=== PATIENT | male | born 1965 | race Hispanic/Latino ===

== ENCOUNTER 2024-07-19 20:07 | Inpatient (IN) | payer BC ==
[~2024-07-19] VITALS: Ht 175.3 cm; Wt 90.8 kg
[~2024-07-19 20:07] MED LIST: COLC0.6T73 PO; DOCU-116 PO; FAMO20TA8 PO; FERR324T4 PO; FOLI0.8T22 PO; Folic Acid/Vitamin B Comp W-C PO; HYDR20TA24 PO; LEVO125C4 PO; SODI650T PO
[2024-07-19 20:49] LABS: BASOPHILS # (AUTO) 0.07 K/uL (0.00-0.20); BASOPHILS % (AUTO) 0.7 % (0.0-5.0); EOSINOPHILS % (AUTO) 1.9 % (0.0-8.0); HEMATOCRIT 39.3 % (42-54); IMMATURE GRANULOCYTE ABSOLUTE 0.18 K/uL (0-1); LYMPHOCYTES # (AUTO) 2.3 K/uL (1.0-4.8); LYMPHOCYTES % (AUTO) 21.7 % (21.0-51.0); MEAN CORPUSCULAR HEMOGLOBIN 33.3 pg (27.0-33.0); MEAN CORPUSCULAR HGB CONC 33.6 g/dL (32.0-36.0); MEAN CORPUSCULAR VOLUME 99.2 fL (79-99); MONOCYTES # (AUTO) 0.6 K/uL (0.1-1.0); MONOCYTES % (AUTO) 5.4 % (3.0-13.0); NEUTROPHILS # (AUTO) 7.4 K/uL (1.8-7.7); NEUTROPHILS % (AUTO) 68.6 % (40.0-77.0); PLATELET COUNT (AUTO) 251 K/uL (130-400); RED BLOOD CELL COUNT(AUTO) 3.96 MIL/uL (4.50-6.20); RED CELL DISTRIBUTION WIDTH 15.7 % (11.0-15.5); WHITE BLOOD COUNT (AUTO) 10.8 K/uL (4.8-10.8)
[2024-07-19 20:57] LABS: CREATININE 4.5 mg/dL (0.5-1.3); POTASSIUM 3.4 mmol/L (3.5-5.1)
--- NOTE | 2024-07-19 22:19 | ERN ---
General Chief Complaint: Abdominal Pain Stated Complaint: C/O ABD PAIN WITH NAUSEA ONSET THIS EVENING Time Seen by MD: 20:10 Time Seen by Midlevel: 20:10 Source: patient History of Present Illness Initial Comments 59-year-old male who presents to the ED due to abdominal pain onset this evening. He states pain started after dinner tonight. Reports nausea but denies vomiting, fever, diarrhea or further associated symptoms. Patient reports previous diagnosis of gallstones one year ago. PMHx ESRD for which patient received dialysis 3 times a week. Dialysis received today. Allergies: Coded Allergies: No Known Drug Allergies (Unverified Allergy, Unknown, 09/13/23) Home Meds Active Scripts Famotidine (Famotidine) 20 Mg Tablet, 20 MG PO DAILY for 30 Days, #30 TAB Prov:ESTELITA AMAYA NP 09/27/23 Docusate Sodium (Colace) 100 Mg Capsule, 100 MG PO DAILY for 30 Days, #30 CAP Prov:ESTELITA AMAYA NP 09/27/23 [Folic Acid/Vitamin B Comp W-C] 1 CAP TAB No Conflict Check, 1 CAP PO DAILY for 30 Days, #30 TAB 0 Refills Prov:ESTELITA AMAYA NP 09/27/23 Ferrous Sulfate (Ferrous Sulfate) 324 Mg (65 Mg Iron) Tablet.dr, 325 MG PO BID for 30 Days, #30 TAB Prov:ESTELITA AMAYA NP 09/27/23 Sodium Bicarbonate (Sodium Bicarbonate) 650 Mg Tablet, 650 MG PO BID for 30 Days, #60 TAB Prov:ESTELITA AMAYA NP 09/27/23 Hydrocortisone (Hydrocortisone) 20 Mg Tablet, 20 MG PO BID for 30 Days, #60 TAB Prov:ESTELITA AMAYA NP 09/27/23 Reported Medications Colchicine (Colchicine) 0.6 Mg Tablet, 0.6 MG PO DAILY for GOUT, TAB 10/24/23 Famotidine (Famotidine) 20 Mg Tablet, 20 MG PO DAILY, TAB 10/24/23 Folic Acid/Vitamin B Comp W-C (Pam-Parmjit Tablet) 0.8 Mg Tablet, 0.8 MG PO DAILY, TAB 10/24/23 Levothyroxine Sodium (Levothyroxine) 125 Mcg Capsule, 125 MCG PO DAILY, CAP 09/15/23 Past Medical History Past Medical History: Renal Failure Medical History Other: BRAIN TUMOR Past Surgical History: Other Surgical History Other: BRAIN TUMOR ROS Dictation Constitutional: Negative for fever,chills, and weight loss Eyes: Negative for injury, pain,redness, and discharge ENT: Negative for injury,pain or swelling Cardiovascular: Negative for chest pain, palpitations, and edema Respiratory: Negative for shortness of breath, cough, and wheezing, Abdomen/GI: Positive for abdominal pain, nausea Negative for vomiting, diarrhea, and constipation Back: Negative for injury and pain : Negative for injury, bleeding and discharge MS/Extremity: Negative for injury and deformity Skin: Negative for rash, and discoloration Neuro: Negative for headache, weakness, numbness, tingling, and seizure Psych: Negative for suicide ideation, homicidal ideation, and hallucinations Physical Exam Physical Exam Dictation General: awake, alert, no acute distress Head/Face: Normocephalic, atraumatic Eyes: normal conjunctiva ENT: oral mucosa moist Neck: Normal range of motion, supple Cardiovascular: RRR, normal S1/S2 Respiratory: no respiratory distress Abdomen: Soft, mild tenderness upon palpation, non-distended, Skin: Warm, dry, normal turgor, no rash MS/Extremity: Pulses equal, no cyanosis, neurovascular intact, FROM Neuro: COAx4, GCS 15, no neurological deficits, normal gait, Psych: Normal behavior, mood, and affect normal Results Laboratory and Microbiology Lab and Micro Result Laboratory Tests Test 07/19/24 20:41 White Blood Count 10.8 K/uL (4.8-10.8) Red Blood Count 3.96 MIL/uL (4.50-6.20) L Hemoglobin 13.2 g/dL (14.0-18.0) L Hematocrit 39.3 % (42-54) L Mean Corpuscular Volume 99.2 fL (79-99) H Mean Corpuscular Hemoglobin 33.3 pg (27.0-33.0) H Mean Corpuscular Hemoglobin Concent 33.6 g/dL (32.0-36.0) Red Cell Distribution Width 15.7 % (11.0-15.5) H Platelet Count 251 K/uL (130-400) Mean Platelet Volume 10.4 fL (7.5-10.5) Immature Granulocyte % (Auto) 1.7 % (0-1) H Neutrophils (%) (Auto) 68.6 % (40.0-77.0) Lymphocytes (%) (Auto) 21.7 % (21.0-51.0) Monocytes (%) (Auto) 5.4 % (3.0-13.0) Eosinophils (%) (Auto) 1.9 % (0.0-8.0) Basophils (%) (Auto) 0.7 % (0.0-5.0) Neutrophils # (Auto) 7.4 K/uL (1.8-7.7) Lymphocytes # (Auto) 2.3 K/uL (1.0-4.8) Monocytes # (Auto) 0.6 K/uL (0.1-1.0) Eosinophils # (Auto) 0.20 K/uL (0.00-0.70) Basophils # (Auto) 0.07 K/uL (0.00-0.20) Absolute Immature Granulocyte (auto 0.18 K/uL (0-1) Nucleated Red Blood Cells 0.0 % (0.0-0.19) Sodium Level 144 mmol/L (136-145) Potassium Level 3.4 mmol/L (3.5-5.1) L Chloride Level 97 mmol/L (101-111) L Carbon Dioxide Level 39 mmol/L (21-32) H Blood Urea Nitrogen 25 mg/dL (7-18) H Creatinine 4.5 mg/dL (0.5-1.3) H Glomerular Filtration Rate Calc 14 mL/min (>90) Random Glucose 138 mg/dL (70-105) H Total Calcium 9.5 mg/dL (8.5-10.1) Total Bilirubin 1.1 mg/dL (0.2-1.0) H Direct Bilirubin 0.7 mg/dL (0.0-0.3) H Aspartate Amino Transf (AST/SGOT) 576 U/L (10-37) H Alanine Aminotransferase (ALT/SGPT) 553 U/L (12-78) H Alkaline Phosphatase 401 U/L (50-136) H Total Protein 8.9 g/dL (6.0-8.3) H Albumin 3.8 g/dL (3.5-5.0) Lipase 65 U/L (16-77) Labs Reviewed?: Yes EKG/XRAY/US/CT/MRI CT Scan Comment REASON: Pain ORDERING PHYSICIAN: JOANA ROSS PROCEDURE: ABD PEL WO - CT ABDOMEN/PELVIS W/O CONTRAST CT ABDOMEN/PELVIS W/O CONTRAST HISTORY: Pain COMPARISON: 10/24/2023 TECHNIQUE: Multiple sequential axial images of the abdomen and pelvis were obtained from the dome of the diaphragm through symphysis pubis. Patient was not given contrast through intravenous route. Oral contrast was not given. FINDINGS: No pleural effusion is seen bilaterally. Prominent interstitial markings are seen. There is no evidence of parenchymal disease or pulmonary nodule of the visualized lower lungs. Degenerative changes of the thoracolumbar spine are present. The heart is not enlarged. Gallstone is seen in the distended gallbladder. Liver measures 17 cm. There is left renal atrophy. There is left ureteral stent. The liver, spleen, adrenal glands and pancreas are unremarkable. There is a 18 x 11 mm right renal cyst. There is no evidence of hydronephrosis bilaterally. No evidence of renal stone is seen. There is diverticulosis. Fecal material is seen in the colon. There are normal size retroperitoneal and mesenteric lymph nodes. No ascites is seen. Atherosclerotic changes are present. Pelvic sidewalls are symmetric bilaterally. Bladder is poorly distended. IMPRESSION: 1. Gallstone in the distended gallbladder. Left ureteral stent with air collection in the left renal pelvis. There is left renal atrophy. There is diverticulosis. CT was performed with one or more following dose reduction techniques: automated exposure control, adjustment of the mA and kv according to patient's size, or use of a iterative reconstruction technique. MDM MDM: Differential diagnosis: Cholecystitis, cholelithiasis, abdominal pain, biliary colic Rationale: 59-year-old male who presents to the ED due to abdominal pain onset this evening. He states pain started after dinner tonight. Reports nausea but denies vomiting, fever, diarrhea or further associated symptoms. Patient reports previous diagnosis of gallstones one year ago. PMHx ESRD for which patient received dialysis 3 times a week. Dialysis received today. Labs obtained are consistent with end-stage renal disease. CT abdomen and pelvis indicates cholelithiasis with a distended gallbladder. LFTs elevated, clinical correlation of duct obstruction. On re-examination patient stated pain had resolved. Per lab results and CT findings patient requires a HIDA scan. Case discussed with MIMI Cao who accepted admission. Findings, diagnosis, admission was discussed with patient and who verbalized understanding and agreed with admission. Previous outside records reviewed: Old ER visits. Risk of complication and/or morbidity or mortality of patient management: None Medications-Per medication reconciliation Need for hospitalization: Patient does meet criteria for hospitalization. Need for emergency major/minor surgery: No There are no social concerns with this patient. Prescription drug management Prescriptions will include symptomatic care Patient's prior external medical records from other ER visits were reviewed by me as indicated. Prior testing and results from previous visits were reviewed. Prior tests were taken into account with medical decision making and resource utilization, independent historian/historians were used to obtain complete medical history. I independently interpreted the test that were performed, results were reviewed by me and considered findings on radiology if ordered. Medical management and examination interpretation discussions were had by me with other qualified healthcare professionals as indicated for the patient's care. ED Course Orders Procedure Category Date Status Time Cbc With Differential LAB 07/19/24 Complete 20:10 Lipase LAB 07/19/24 Complete 20:10 Urinalysis Profile LAB 07/19/24 In Process 20:10 Basic Metabolic Panel LAB 07/19/24 Complete 20:10 Ct Abdomen/Pelvis W/O CT 07/19/24 Resulted Contrast 21:46 Hepatic Function Panel LAB 07/20/24 Complete 00:10 Vital Signs Date Time Temp Pulse Resp B/P (MAP) Pulse Ox O2 Delivery O2 Flow Rate FiO2 07/19/24 21:45 98.4 85 18 97/65 99 Room Air* 0 21 07/19/24 20:11 99.1 100 20 100/68 100 Room Air Critical Care Note Critical Time: 30 minutes Comments Critical Care Procedure Note Authorized and Performed by: Total critical care time: Approximately 36 minutes Due to a high probability of clinically significant, life threatening deterioration, the patient required my highest level of preparedness to intervene emergently and I personally spent this critical care time directly and personally managing the patient. This critical care time included obtaining a history; examining the patient; pulse oximetry; ordering and review of studies; arranging urgent treatment with development of a management plan; evaluation of patient's response to treatment; frequent reassessment; and, discussions with other providers. This critical care time was performed to assess and manage the high probability of imminent, life-threatening deterioration that could result in multi-organ failure. It was exclusive of separately billable procedures and treating other patients and teaching time. Please see MDM section and the rest of the note for further information on patient assessment and treatment. DX & DISP Disposition: Inpatient Departure Impression: Primary Impression: Cholelithiasis Additional Impressions: Biliary colic, Elevated LFTs Condition: Stable Referrals: YARA ABREU Jr., MD (PCP) I participated in the following activities of this patient's care: For this patient encounter, I reviewed the PA or PRESALES ENGINEER documentation, treatment plan, and medical decision making. I did not have [id number] time with this patient. I will sign as the reviewing DrJc And agree with the treatment plan and disposition. JOANA ROSS Jul 19, 2024 22:19
--- NOTE | 2024-07-19 22:40 | HMCIMG ---
CT ABDOMEN/PELVIS W/O CONTRAST HISTORY: Pain COMPARISON: 10/24/2023 TECHNIQUE: Multiple sequential axial images of the abdomen and pelvis were obtained from the dome of the diaphragm through symphysis pubis. Patient was not given contrast through intravenous route. Oral contrast was not given. FINDINGS: No pleural effusion is seen bilaterally. Prominent interstitial markings are seen. There is no evidence of parenchymal disease or pulmonary nodule of the visualized lower lungs. Degenerative changes of the thoracolumbar spine are present. The heart is not enlarged. Gallstone is seen in the distended gallbladder. Liver measures 17 cm. There is left renal atrophy. There is left ureteral stent. The liver, spleen, adrenal glands and pancreas are unremarkable. There is a 18 x 11 mm right renal cyst. There is no evidence of hydronephrosis bilaterally. No evidence of renal stone is seen. There is diverticulosis. Fecal material is seen in the colon. There are normal size retroperitoneal and mesenteric lymph nodes. No ascites is seen. Atherosclerotic changes are present. Pelvic sidewalls are symmetric bilaterally. Bladder is poorly distended. IMPRESSION: 1. Gallstone in the distended gallbladder. Left ureteral stent with air collection in the left renal pelvis. There is left renal atrophy. There is diverticulosis. CT was performed with one or more following dose reduction techniques: automated exposure control, adjustment of the mA and kv according to patient's size, or use of a iterative reconstruction technique.
--- NOTE | 2024-07-19 23:48 | NUR ---
SBAR GIVEN TO JOSE UMANZOR
[2024-07-20 00:39] LABS: ALBUMIN 3.8 g/dL (3.5-5.0); BILIRUBIN,DIRECT 0.7 mg/dL (0.0-0.3); BILIRUBIN,TOTAL 1.1 mg/dL (0.2-1.0); TOTAL PROTEIN, SERUM 8.9 g/dL (6.0-8.3)
[2024-07-20] MEDS ORDERED: CALC667C10 PO (01:03)
[2024-07-20] MEDS ORDERED: EZET10TA48 PO (01:03)
[2024-07-20] MEDS ORDERED: HYDR-4419 PO (01:03)
[2024-07-20] MEDS ORDERED: FOLI0.8T43 PO (01:03)
--- NOTE | 2024-07-20 02:16 | HP ---
[facility] HISTORY AND PHYSICAL Date of Service: Jul 20, 2024 Time of Service: 02:15 PCP: Jonatan Barahona HISTORY OF PRESENT ILLNESS: This is a 59-year-old male with past medical history of diabetes, hypothyroidism, osteoarthritis, left retro-orbital mass with removal and end- stage renal disease on hemodialysis who presents to the ED for complaints of abdominal pain located around mid abdomen described pain as discomfort.Patient states he had rice and chicken around 5:00pm and at 5:30 pm he started having abdominal pain associated with nausea but no vomiting.Patient states his last bowel movement was last night and it was normal. Seen and examined patient in the ED awake,alert and coherent,appears comfortable. Patient denies fever, chills, vomiting, diarrhea, chest pain, cough, palpitation and shortness of breath. Latest vital signs temperature 98.6, heart rate 86, blood pressure 110/65, saturation 98% on room air. Labs: WBC 10.8, hemoglobin 13.2, hematocrit 39.3, platelet count 251. Potassium 3.4, chloride 97, CO2 39, BUN 25, creatinine 4.5, GFR 14 glucose 138, total bili 1.1, direct bili 0.7, AST 576, ALT 553, alkaline phosphatase 401 total protein 8.[address] abdomen and pelvis without contrast result revealed gallstone in the distended gallbladder. Left ureteral stent with air collection in the left renal pelvis. There is left renal atrophy. There is diverticulosis. We will admit patient for further medical management. REVIEW OF SYSTEMS CONSTITUTIONAL: Denies fevers, chills, or night sweats. No unintentional weight loss reported. NEUROLOGICAL: Denies headache, amaurosis fugax, motor weakness, sensory deficit, vertigo/spinning sensation, gait abnormalities, or tremors. ENT: No hearing loss, otalgia, otorrhea, rhinitis, rhinorrhea, hoarseness, or sore throat. CARDIOVASCULAR: Denies any exertional angina, dyspnea on exertion, orthopnea, paroxysmal nocturnal dyspnea, palpitations, life-threatening arrhythmias, claudication. PULMONARY: Denies any shortness of breath, cough, phlegm/sputum, hemoptysis, pleuritic chest pain. SLEEP: Denies morning headaches, daytime somnolence or napping. Denies difficulty falling asleep, staying asleep, waking from sleep. Denies knowledge of snoring. GASTROINTESTINAL: Abdominal pain and nausea Denies any type of dysphagia to either liquids or solids. Denies vomiting, pyrosis, early satiety, diarrhea, constipation, or changes in stool consistency or caliber. Denies coffee-ground emesis, hematemesis, hematochezia, or melanotic stools. GENITOURINARY: Denies frequency, urgency, nocturia, hematuria or incontinence (Storage/Irritative symptoms.) Low urinary stream, straining to void, urinary intermittency or hesitancy, splitting of the voiding stream, terminal dribbling. ENDOCRINOLOGIC: Denies polyuria, polydipsia, polyphagia or heat/cold intolerances. HEMATOLOGIC: Denies thrombophilia/previous clots, or coagulopathy/bleeding disorders. ONCOLOGIC: Denies personal history of malignancy. DERMATOLOGIC: Denies rashes or pruritus. PSYCHIATRIC: Denies any suicidal or homicidal ideation. Denies hallucinations. PAST MEDICAL HISTORY: Diabetes type 2 End-stage renal disease on hemodialysis Wednesday Hypothyroidism Osteoarthritis Left retro-orbital mass PAST SURGICAL HISTORY: Left arm fistula Right chest permacath Status post left retro-orbital mass removal in August 2023 in [facility] PAST SOCIAL HISTORY: Patient denies tobacco alcohol and recreational drug use FAMILY HISTORY: Noncontributory Coded Allergies: No Known Drug Allergies (Unverified Allergy, Unknown, 09/13/23) PHYSICAL EXAM GENERAL APPEARANCE: The patient is awake, alert, and oriented, in no acute cardiopulmonary distress. NEUROLOGICAL: Cranial nerves II-XII grossly intact. Motor is 5/5 in bilateral upper and lower extremities proximal to distal. No sensory deficits. HEENT: Face is symmetric. Pupils are equal and reactive. Extraocular movements are intact. NECK: Supple. No JVD. No thyromegaly. No submental, submandibular, pre-/po stauricular, occipital or supraclavicular lymphadenopathy. CHEST: Normal chest expansion. No Telemetry. LUNGS: Absence of any rales, rhonchi or any wheezing. CARDIOVASCULAR: Regular. S1 and S2 normal. No appreciable rubs, murmurs or gallops. ABDOMEN: Soft, nontender, and nondistended. There is no rebound, voluntary guarding, or rigidity. : Deferred. No Shea. EXTREMITIES: Non-edematous and not cyanotic. No clubbing. Good capillary refill. SKIN: No skin breakdown. Vital Sign (Last 24 Hours) 07/20/24 01:11 Temp 98.6 Pulse 86 Resp 18 B/P (MAP) 110/65 Pulse Ox 98 O2 Delivery Room Air* O2 Flow Rate 0 FiO2 21 LABS: Laboratory: Test 07/19/24 20:41 Range/Units White Blood Count 10.8 4.8-10.8 K/uL Red Blood Count 3.96 L 4.50-6.20 MIL/uL Hemoglobin 13.2 L 14.0-18.0 g/dL Hematocrit 39.3 L 42-54 % Mean Corpuscular Volume 99.2 H 79-99 fL Mean Corpuscular Hemoglobin 33.3 H 27.0-33.0 pg Mean Corpuscular Hemoglobin Concent 33.6 32.0-36.0 g/dL Red Cell Distribution Width 15.7 H 11.0-15.5 % Platelet Count 251 130-400 K/uL Mean Platelet Volume 10.4 7.5-10.5 fL Immature Granulocyte % (Auto) 1.7 H 0-1 % Neutrophils (%) (Auto) 68.6 40.0-77.0 % Lymphocytes (%) (Auto) 21.7 21.0-51.0 % Monocytes (%) (Auto) 5.4 3.0-13.0 % Eosinophils (%) (Auto) 1.9 0.0-8.0 % Basophils (%) (Auto) 0.7 0.0-5.0 % Neutrophils # (Auto) 7.4 1.8-7.7 K/uL Lymphocytes # (Auto) 2.3 1.0-4.8 K/uL Monocytes # (Auto) 0.6 0.1-1.0 K/uL Eosinophils # (Auto) 0.20 0.00-0.70 K/uL Basophils # (Auto) 0.07 0.00-0.20 K/uL Absolute Immature Granulocyte (auto 0.18 0-1 K/uL Nucleated Red Blood Cells 0.0 0.0-0.19 % Sodium Level 144 136-145 mmol/L Potassium Level 3.4 L 3.5-5.1 mmol/L Chloride Level 97 L 101-111 mmol/L Carbon Dioxide Level 39 H 21-32 mmol/L Blood Urea Nitrogen 25 H 7-18 mg/dL Creatinine 4.5 H 0.5-1.3 mg/dL Glomerular Filtration Rate Calc 14 >90 mL/min Random Glucose 138 H 70-105 mg/dL Total Calcium 9.5 8.5-10.1 mg/dL Total Bilirubin 1.1 H 0.2-1.0 mg/dL Direct Bilirubin 0.7 H 0.0-0.3 mg/dL Aspartate Amino Transf (AST/SGOT) 576 H 10-37 U/L Alanine Aminotransferase (ALT/SGPT) 553 H 12-78 U/L Alkaline Phosphatase 401 H 50-136 U/L Total Protein 8.9 H 6.0-8.3 g/dL Albumin 3.8 3.5-5.0 g/dL Lipase 65 16-77 U/L DIAGNOSTICS / RADIOLOGY: [ ] ASSESSMENT: Suspected acute cholecystitis with cholelithiasis POA Elevated liver enzymes POA Anemia on chronic kidney disease POA End-stage renal disease on hemodialysis POA Hyperglycemia POA Obesity POA Hypothyroidism POA PLAN: We will admit patient in medical surgical floor We will keep patient nothing by mouth We will start on Famotidine 20 mg IV daily for GI prophylaxis We will add prn medication for fever,pain ,nausea and vomiting We will reconcile home meds once medlist available We will seek general surgery consultation We will seek Nephrology consultation We will obtain abdominal ultrasound We will request labs in am Further orders to follow depending on above results Case discussed with attending physician and came up with above treatment and plan of care. ADVANCED CARE PLANNING 1. Which of the following were discussed? Hospice Care - No Therapeutic options - Yes Advance Directives - No Other discussions - 2. Discussed with who? Patient 3. Voluntary nature of this service was explained to the patient? Yes 4. Amount of time spent - _18 5. Reviewed by Physician? (if this service was performed by NPP) Yes Patient seen and examined by me. Agree with note by SECTION LABORER SEE ADDITIONAL ORDERS PER CHART DISCUSSED WITH NURSING STAFF DULCE MARIA QUIROGAP Jul 20, 2024 02:16
[2024-07-20] MEDS ORDERED: hydrALAZine 20MG/ML VIAL IV PRN (02:30)
[2024-07-20] MEDS ORDERED: ondanSETRON 4MG INJ IV PRN (02:30)
[2024-07-20] MEDS: ALBUMIN HUMAN 25% 100 ML IV ONE (05:02)
[2024-07-20] MEDS: ALBUMIN HUMAN 25% 100 ML IV SCH (05:03)
[2024-07-20 07:02] LABS: BASOPHILS # (AUTO) 0.05 K/uL (0.00-0.20); BASOPHILS % (AUTO) 0.7 % (0.0-5.0); EOSINOPHILS # (AUTO) 0.21 K/uL (0.00-0.70); HEMATOCRIT 33.9 % (42-54); IMMATURE GRANULOCYTE ABSOLUTE 0.14 K/uL (0-1); LYMPHOCYTES % (AUTO) 28.2 % (21.0-51.0); MEAN CORPUSCULAR HEMOGLOBIN 32.7 pg (27.0-33.0); MEAN CORPUSCULAR HGB CONC 33.6 g/dL (32.0-36.0); MEAN CORPUSCULAR VOLUME 97.1 fL (79-99); MONOCYTES # (AUTO) 0.5 K/uL (0.1-1.0); MONOCYTES % (AUTO) 7.5 % (3.0-13.0); NEUTROPHILS # (AUTO) 4.1 K/uL (1.8-7.7); NEUTROPHILS % (AUTO) 58.6 % (40.0-77.0); PLATELET COUNT (AUTO) 234 K/uL (130-400); RED BLOOD CELL COUNT(AUTO) 3.49 MIL/uL (4.50-6.20); RED CELL DISTRIBUTION WIDTH 15.7 % (11.0-15.5)
[2024-07-20 07:29] LABS: ALBUMIN 3.5 g/dL (3.5-5.0); BILIRUBIN,DIRECT 1.3 mg/dL (0.0-0.3); BILIRUBIN,TOTAL 1.8 mg/dL (0.2-1.0); CREATININE 5.3 mg/dL (0.5-1.3); TOTAL PROTEIN, SERUM 7.9 g/dL (6.0-8.3)
--- NOTE | 2024-07-20 07:45 | NUR ---
ASSESSMENT: PT FOUND ALERT AND AWAKE. NO ACUTE DISTRESS AT THIS TIME. GI/: PT WAS HERE FOR ABD PAIN RUQ. DX CHOLECYTITIS. TENDERNESS TO PALPATION ONLY AT THIS TIME. + BS X 4 QUADS. NO BM OF YET. PT HAS HD Q M-W-F. PT DENIES N/V AT THIS TIME. PT STILL VOIDS URINE. NEURO: PT A/O X 4. GCS 15. PT FOLLOWS ALL COMMANDS BOTH SIMPLE AND COMPLEX. NEUROLOGICALLY INTACT MUSCULOSKELETAL/INTEGUMENTARY: PT HAS FULL ROM AND NO SKIN BREAKDOWN NOTED NOR VERBALIZED BY PT. CARDIO/PULMONARY: PT DENIES CP. NO EDEMA NOTED TO LE'S BILATERALLY. PT HAS AN IRREGULAR BEAT/AFIB. NO CYANOSIS NOTED TO NAIL BEDS ON FINGERS. PT ALSO DENIES ANY SOB AT THIS TIME. SATS>95%ON ROOM AIR OXYGEN. CAP REFILL LESS THAN 3 SEC.
--- NOTE | 2024-07-20 07:48 | NUR ---
DR QUINTERO WAS IN TO SEE THE PT.
--- NOTE | 2024-07-20 07:50 | NUR ---
DR QUINTERO IN TO SEE PT.
[2024-07-20 08:42] LABS: ERYTHROCYTE SEDIMENTATION RATE 70 MM/HR (0-20)
--- NOTE | 2024-07-20 09:28 | NUR ---
SURGICAL CONSULT: TOMÁS AVINA WAS IN TO SEE THE PT. WILL PLACED ORDERS.
--- NOTE | 2024-07-20 10:35 | HMCIMG ---
US ABDOMINAL COMPLETE REASON: elevated livewr enzymes COMPARISON: None FINDINGS: There is moderate fatty infiltration of the liver. There are no focal mass lesions. The liver is borderline at 16 cm.There are stones present within the gallbladder. There is no wall thickening or pericholecystic edema. Right kidney is 10.8 x 5.4 x 5.5 cm, left 7 x 3.7 x 3.2 cm. There is a 2.2 cm right renal cyst. There is a stent visible in the left kidney, there is also a 6 mm nonobstructing stone. Spleen and common duct appear normal. Aorta and inferior vena cava appear normal. The pancreas appears normal as well. IMPRESSION: 1. Moderate fatty infiltration of the liver which is borderline in size. 2. Stent seen in the left kidney, there is no hydronephrosis, there is a 6 mm stone. 3. Otherwise unremarkable exam.
--- NOTE | 2024-07-20 10:51 | PN ---
Consulting physician: Dr. Quevedo Consulting service: General surgery Reason for consultation: Cholecystitis History of present illness: This 59-year-old male with a medical history listed below who has been consulted to surgery after presenting to the hospital with the abdominal pain that began yesterday evening. Patient reports similar episode years prior where he was treated medically and sent home with antibiotics. Upon admission imaging performed and concerns for cholecystitis noted. Patient however with elevated LFTs and a bilirubin of 1.8. White count and hemoglobin stable. Patient currently NPO. Patient reports abdominal pain has improved but currently NPO. Patient on IV fluids and IV antibiotics Medical history: Diabetes type 2 End-stage renal disease on hemodialysis Wednesday Hypothyroidism Osteoarthritis Left retro-orbital mass PAST SURGICAL HISTORY: Left arm fistula Right chest permacath Status post left retro-orbital mass removal in August 2023 in [facility] PAST SOCIAL HISTORY: Patient denies tobacco alcohol and recreational drug use FAMILY HISTORY: Noncontributory Coded Allergies: No Known Drug Allergies (Unverified Allergy, Unknown, 09/13/23) Review of systems: General: No Fever, No Chills, No Night Sweats, No Fatigue, No Malaise, No Appetite, No Other HEENT: No Head Aches, No Visual Changes, No Eye Pain, No Ear Pain, No Dysphasia, No Sinus Congestion, No Post Nasal Drip, No Sore Throat, No Other Pulmonary: No Dyspnea, No Cough, No Pleuritic Chest Pain, No Other Cardiovascular: No: Chest Pain, Palpitations, Orthopnea, Paroxysmal No Dyspnea, Edema, Lt Headedness, Other Gastrointestinal: No: Nausea, Vomiting, Diarrhea, Constipation, Melena, Hematochezia, Other Genitourinary: No Dysuria, No Frequency, No Incontinence, No Hematuria, No Retention, No Other Musculoskeletal: No: other, neck pain, shoulder pain, arm pain, back pain, hand pain, leg pain, foot pain Skin: No Urticaria, No Rash, No Other Neurological: No: Weakness, Numbness, Incoordination, Change in speech, Confusion, Seizures, Other Physical exam: General: Awake alert and oriented Heart: Regular rate and rhythm} Lungs: Clear to auscultation no distress Abdomen: [Soft, nontender, nondistended Assessment: This is a 59-year-old male with concerns of cholecystitis with elevated bilirubin Plan: With concerns of elevated bilirubin MRCP to be ordered Patient to be kept NPO Pending results will determine if surgical intervention will be necessary Nursing report any further acute events Dr. Mo to be updated in patient's status and surgical team to follow patient closely Vitals/Labs Vital Signs Date Time Temp Pulse Resp B/P (MAP) Pulse Ox O2 Delivery O2 Flow Rate FiO2 07/20/24 09:36 97.9 78 16 97/61 98 Room Air* 0 21 Laboratory Tests 07/19/24 20:41 07/20/24 06:49 Medications Current Medications Ondansetron HCl 4 mg Q6H PRN IV; Start 07/20/24 at 02:30; Stop 08/19/24 at 02:29 Hydralazine HCl 10 mg Q6H PRN IV; Start 07/20/24 at 02:30; Stop 08/19/24 at 02:29 Famotidine 10 mg DAILY IV; Start 07/20/24 at 09:00; Stop 08/19/24 at 08:59 Albumin Human 100 ml @ 0 mls/hr AD IV; Start 07/20/24 at 05:00; Stop 08/19/24 at 04:59 Albumin Human 100 ml @ As Directed STK-MED ONCE IV Last administered on 07/20/24at 05:02; Start 07/20/24 at 04:52; Stop 07/20/24 at 04:58; Status DC TOMÁS STARR Jr. Jul 20, 2024 10:51
[2024-07-20] MEDS: FAMOTIDINE 20MG VIAL IV SCH (11:00)
[2024-07-20] MEDS: miDODRine HCL 5 MG TABLET PO ONE (11:00)
--- NOTE | 2024-07-20 11:04 | PN ---
[facility] PROGRESS NOTE Date of Service: Jul 20, 2024 Time of Service: 10:[address] Quintero SUBJECTIVE: [This is a 59-year-old male with past medical history of diabetes, hypothyroidism, osteoarthritis, left retro-orbital mass with removal and end- stage renal disease on hemodialysis who presents to the ED for complaints of abdominal pain located around mid abdomen described pain as discomfort.Patient states he had rice and chicken around 5:00pm and at 5:30 pm he started having abdominal pain associated with nausea but no vomiting.Patient states his last bowel movement was last night and it was normal. Seen and examined patient in the ED awake,alert and coherent,appears comfortable. Patient denies fever, chills, vomiting, diarrhea, chest pain, cough, palpitation and shortness of breath. Latest vital signs temperature 98.6, heart rate 86, blood pressure 110/65, saturation 98% on room air. Labs: WBC 10.8, hemoglobin 13.2, hematocrit 39.3, platelet count 251. Potassium 3.4, chloride 97, CO2 39, BUN 25, creatinine 4.5, GFR 14 glucose 138, total bili 1.1, direct bili 0.7, AST 576, ALT 553, alkaline phosphatase 401 total protein 8.[address] abdomen and pelvis without contrast result revealed gallstone in the distended gallbladder. Left ureteral stent with air collection in the left renal pelvis. There is left renal atrophy. There is diverticulosis. We will admit patient for further medical management. 07/20/24 patient was seen by nurse practitioner and physician during rounding in the emergency department in room ED 11 lying in bed. Patient was evaluated by the surgeon and per their request MRCP to be performed 1st once the procedure will be performed they might continue with cholecystectomy possibly tomorrow 07/21/2024 further plan/recommendation awaiting. Patient to receive dialysis tomorrow 07/21/2024. We will continue monitoring patient in the meantime a.m. labs. ] REVIEW OF SYSTEMS CONSTITUTIONAL: Denies fevers, chills, or night sweats. No unintentional weight loss reported. NEUROLOGICAL: Denies headache, amaurosis fugax, motor weakness, sensory defici t, vertigo/spinning sensation, gait abnormalities, or tremors. ENT: No hearing loss, otalgia, otorrhea, rhinitis, rhinorrhea, hoarseness, or sore throat. CARDIOVASCULAR: Denies any exertional angina, dyspnea on exertion, orthopnea, paroxysmal nocturnal dyspnea, palpitations, life-threatening arrhythmias, claudication. PULMONARY: Denies any shortness of breath, cough, phlegm/sputum, hemoptysis, pleuritic chest pain. SLEEP: Denies morning headaches, daytime somnolence or napping. Denies difficulty falling asleep, staying asleep, waking from sleep. Denies knowledge of snoring. GASTROINTESTINAL: Abdominal pain and nausea Denies any type of dysphagia to either liquids or solids. Denies vomiting, pyrosis, early satiety, diarrhea, constipation, or changes in stool consistency or caliber. Denies coffee-ground emesis, hematemesis, hematochezia, or melanotic stools. GENITOURINARY: Denies frequency, urgency, nocturia, hematuria or incontinence (Storage/Irritative symptoms.) Low urinary stream, straining to void, urinary intermittency or hesitancy, splitting of the voiding stream, terminal dribbling. ENDOCRINOLOGIC: Denies polyuria, polydipsia, polyphagia or heat/cold intolerances. HEMATOLOGIC: Denies thrombophilia/previous clots, or coagulopathy/bleeding disorders. ONCOLOGIC: Denies personal history of malignancy. DERMATOLOGIC: Denies rashes or pruritus. PSYCHIATRIC: Denies any suicidal or homicidal ideation. Denies hallucinations. PHYSICAL EXAM GENERAL APPEARANCE: The patient is awake, alert, and oriented, in no acute cardiopulmonary distress. NEUROLOGICAL: Cranial nerves II-XII grossly intact. Motor is 5/5 in bilateral upper and lower extremities proximal to distal. No sensory deficits. HEENT: Face is symmetric. Pupils are equal and reactive. Extraocular movements are intact. NECK: Supple. No JVD. No thyromegaly. No submental, submandibular, pre- /postauricular, occipital or supraclavicular lymphadenopathy. CHEST: Normal chest expansion. No Telemetry. LUNGS: Absence of any rales, rhonchi or any wheezing. CARDIOVASCULAR: Regular. S1 and S2 normal. No appreciable rubs, murmurs or gallops. ABDOMEN: Soft, nontender, and nondistended. There is no rebound, voluntary guarding, or rigidity. : Deferred. No Shea. EXTREMITIES: Non-edematous and not cyanotic. No clubbing. Good capillary refill. SKIN: No skin breakdown. Vital Signs (last 8hr) Date Time Temp Pulse Resp B/P (MAP) Pulse Ox O2 Delivery O2 Flow Rate FiO2 07/20/24 09:36 97.9 78 16 97/61 98 Room Air* 0 07/20/24 05:30 81 18 100/64 99 Room Air* 0 07/20/24 05:00 76 18 94/60 97 Room Air* 0 07/20/24 04:00 75 18 79/49 98 Room Air* 0 07/20/24 03:30 78 18 88/40 97 Room Air* 0 07/20/24 03:00 98.6 86 18 116/69 98 Room Air* 0 21 LABS: Laboratory: Test 07/20/24 06:49 07/19/24 20:41 Range/Units White Blood Count 7.0 # 4.8-10.8 K/uL Red Blood Count 3.49 L 4.50-6.20 MIL/uL Hemoglobin 11.4 L 14.0-18.0 g/dL Hematocrit 33.9 L 42-54 % Mean Corpuscular Volume 97.1 79-99 fL Mean Corpuscular Hemoglobin 32.7 27.0-33.0 pg Mean Corpuscular Hemoglobin Concent 33.6 32.0-36.0 g/dL Red Cell Distribution Width 15.7 H 11.0-15.5 % Platelet Count 234 130-400 K/uL Mean Platelet Volume 10.7 H 7.5-10.5 fL Immature Granulocyte % (Auto) 2.0 H 0-1 % Neutrophils (%) (Auto) 58.6 40.0-77.0 % Lymphocytes (%) (Auto) 28.2 21.0-51.0 % Monocytes (%) (Auto) 7.5 3.0-13.0 % Eosinophils (%) (Auto) 3.0 0.0-8.0 % Basophils (%) (Auto) 0.7 0.0-5.0 % Neutrophils # (Auto) 4.1 1.8-7.7 K/uL Lymphocytes # (Auto) 2.0 1.0-4.8 K/uL Monocytes # (Auto) 0.5 0.1-1.0 K/uL Eosinophils # (Auto) 0.21 0.00-0.70 K/uL Basophils # (Auto) 0.05 0.00-0.20 K/uL Absolute Immature Granulocyte (auto 0.14 0-1 K/uL Nucleated Red Blood Cells 0.0 0.0-0.19 % Erythrocyte Sedimentation Rate 70 H 0-20 MM/HR Sodium Level 142 136-145 mmol/L Potassium Level 3.0 *L 3.5-5.1 mmol/L Chloride Level 98 L 101-111 mmol/L Carbon Dioxide Level 32 21-32 mmol/L Blood Urea Nitrogen 32 H 7-18 mg/dL Creatinine 5.3 H 0.5-1.3 mg/dL Glomerular Filtration Rate Calc 12 >90 mL/min Random Glucose 115 H 70-105 mg/dL Total Calcium 9.6 8.5-10.1 mg/dL Total Bilirubin 1.8 #H 0.2-1.0 mg/dL Direct Bilirubin 1.3 #H 0.0-0.3 mg/dL Aspartate Amino Transf (AST/SGOT) 833 *H 10-37 U/L Alanine Aminotransferase (ALT/SGPT) 739 #*H 12-78 U/L Alkaline Phosphatase 417 H 50-136 U/L Total Protein 7.9 6.0-8.3 g/dL Albumin 3.5 3.5-5.0 g/dL Lipase 65 16-77 U/L Current Medications Medications (Trade) Dose Ordered Sig/Jarad Route PRN Reason Start Time Stop Time Status Last Admin Dose Admin Albumin Human 100 ml @ 0 mls/hr AD IV 07/20/24 05:00 08/19/24 04:59 Famotidine (Pepcid 20mg Vial) 10 mg DAILY IV 07/20/24 09:00 08/19/24 08:59 Hydralazine HCl (APRESOLine 20MG INJ) 10 mg Q6H PRN IV For:SBP above 160;DBP above 90 07/20/24 02:30 08/19/24 02:29 Ondansetron HCl (zoFRAN 4MG INJ) 4 mg Q6H PRN IV NAUSEA/VOMITING 07/20/24 02:30 08/19/24 02:29 DIAGNOSTICS / RADIOLOGY: [ ] ASSESSMENT: Suspected acute cholecystitis with cholelithiasis POA 6 mm stone per ultrasound abdomen 07/19/[address] abdomen/pelvis 07/19/2024 Hypotension POA Elevated liver enzymes POA Iron-deficiency anemia POA End-stage renal disease on hemodialysis POA Uncontrolled diabetes mellitus type 2 with hypoglycemia POA Morbid Obesity POA Hypothyroidism POA Left ureter stent per CT abdomen/pelvis 07/19/2024 Electrolyte imbalance hypokalemia 3.0 , hypochloridemia 98 POA PLAN: We will admit patient in medical surgical floor We will keep patient nothing by mouth We will start on Famotidine 20 mg IV daily for GI prophylaxis We will add prn medication for fever,pain ,nausea and vomiting Home medication reconciled Pending MRCP per surgeon recommendation Possible cholecystectomy surgery tomorrow 07/21/2024 per surgeon Nephrology consulted for ESRD dialysis CT abdomen/pelvis showed gallstones left ureter stent and the diverticulosis Ultrasound abdomen shows stent in the left kidney no hydronephrosis 6 mm stone A.m. labs Continue to monitor patient Case discussed with attending physician and came up with above treatment and plan of care. ATTESTATION BY PHYSICIAN I have seen and examined the patient. I reviewed the documentation, medical decision making, and treatment plan as noted by the mid-level provider above. I agree with the findings and plan of care. MIGDALIA QUINTERO MD, KATARZYNA B [facility] Jul 20, 2024 11:04
--- NOTE | 2024-07-20 11:43 | NUR ---
SHAYLA PERSONAL LINES SALES EXECUTIVE WAS AT BEDSIDE W/PT
--- NOTE | 2024-07-20 12:02 | NUR ---
CONSENT FOR IV CONTRAST OBTAINED. PENDING DR GIBSON TO RETURN CALL FOR AUTHORIZATION OF MRI W/CONTRAST
--- NOTE | 2024-07-20 12:13 | NUR ---
DCP: HOME Pt currently from [place] [phone] and lives with his parents, Debbie Jean Baptiste [phone]. Pt on dialysis at [facility] at 8:30, drives himself. Has providers 16hrs a wk thru [facility], no DME or HH. PCP is Anette Barahona and he uses [facility] for rx. Pt understands, to continue making decisions if pt unable. Denies dc needs and will dc home. Addendum: 07/20/24 at 1257 by SHAYLA ALVARADO SS Amended: Links added.
--- NOTE | 2024-07-20 13:19 | NUR ---
I SPOKE TO DR COCHRAN OFFICE AND GAVE INFORMATION THATS BEING REQUESTED ABOUT PT WANTING HIS PERMISSION TO HAVE THE ERCP W/CONTRAST. I WAS INFORMED THAT SHE WOULD TRY TO HAVE AN ANSWER BY THE END OF THE DAY. I INFORMED HER THIS MAY BE A DECIDING FACTOR ON A SURGICAL PROCEDURE THAT MAY BE SCHEDULED FOR TOMORROW. SHE STATED SHE WOULD CALL ME BACK SOON SHE ASKED HIM.
--- NOTE | 2024-07-20 13:29 | NUR ---
DR ESTRELLA CALLED IN REFERENCE TO ERCP ORDER AND IV CONTRAST.
--- NOTE | 2024-07-20 13:43 | NUR ---
DR ESTRELLA RETURNED CALL-REFER TO NEW ORDER. PRINTING TABLE WORKER MADE AWARE
[2024-07-20] MEDS: CALCIUM AC 667MG CAP PO SCH (14:00)
[2024-07-20] MEDS ORDERED: hydroMORPHone 0.5 MG SYG (0.5MG/0.5ML) IVP PRN (14:30)
--- NOTE | 2024-07-20 15:05 | CONS ---
NEPHROLOGY CONSULTATION NOTE Date/Time Patient Seen: Jul 20, 2024 1420 Reason for Consultation: Abdominal pain, end-stage renal disease HISTORY OF PRESENT ILLNESS: This is a 59-year-old male with a past medical history of end-stage renal disease on hemodialysis Wednesday, diabetes mellitus type 2, hypothyroidism, osteoarthritis, left retro-orbital mass with removal. He presented to the emergency with complaints of abdominal pain. Patient states he has been compliant with hemodialysis sessions. CT of the abdomen and pelvis showed Gallstone in the distended gallbladder. Left ureteral stent with air collection in the left renal pelvis. There is left renal atrophy. There is diverticulosis. He was seen by General surgery and is pending an MRCP. He was seen in the emergency room, in no acute distress No family at the bedside Prognosis remains guarded REVIEW OF SYSTEMS: GENERAL: Positive for abdominal pain NEUROLOGIC: Negative for any blurry vision, blind spots, double vision, facial asymmetry, dysphagia, dysarthria, hemiparesis, hemisensory deficits, vertigo, ataxia. HEENT: Negative for any head trauma, neck trauma, neck stiffness, photophobia, phonophobia, sinusitis, rhinitis. CARDIAC: Negative for any chest pain, dyspnea on exertion, paroxysmal nocturnal dyspnea, peripheral edema. PULMONARY: Negative for any shortness of breath, wheezing, COPD, or TB exposure. GASTROINTESTINAL: Negative for any abdominal pain, nausea, vomiting, bright red blood per rectum, melena. GENITOURINARY: Negative for any dysuria, hematuria, incontinence. INTEGUMENTARY: Negative for any rashes, cuts, insect bites. RHEUMATOLOGIC: Negative for any joint pains, photosensitive rashes, history of vasculitis or kidney problems. HEMATOLOGIC: Negative for any abnormal bruising, frequent infections or bleeding. PAST MEDICAL HISTORY: End-stage renal disease Diabetes mellitus type 2 Hypothyroidism Osteoarthritis Left retro-orbital mass PAST SURGICAL HISTORY: Left AV fistula Left retroorbital mass removal. PAST SOCIAL HISTORY: Denies use of alcohol, tobacco or illicit drugs FAMILY HISTORY: [ ] PHYSICAL EXAM: GENERAL: Alert and oriented x 3. No acute distress. Well-nourished. EYES: EOMI. Anicteric. HENT: Moist mucous membranes. No scleral icterus. No cervical lymphadenopathy. LUNGS: Clear to auscultation bilaterally. No accessory muscle use. CARDIOVASCULAR: Regular rate and rhythm. No murmur. No JVD. ABDOMEN: Soft, non-tender and non-distended. No palpable masses. EXTREMITIES: No edema. Non-tender. SKIN: No rashes or lesions. Warm. NEUROLOGIC: No focal neurological deficits. CN II-XII grossly intact, but not individually tested. PSYCHIATRIC: Cooperative. Appropriate mood and affect. MEDICATIONS: [ ] Current Medications Medications (Trade) Dose Ordered Sig/Jarad Route PRN Reason Start Time Stop Time Status Last Admin Dose Admin Albumin Human 100 ml @ 0 mls/hr AD IV 07/20/24 05:00 08/19/24 04:59 Calcium Acetate (Phoslo 667mg Cap) 667 mg TID PO 07/20/24 14:00 08/19/24 13:59 Colchicine (COLCHicine 0.6mg TAB) 0.6 mg DAILY PO 07/21/24 09:00 08/20/24 08:59 Docusate Sodium (COLace 100MG CAP) 100 mg DAILY PO 07/21/24 09:00 08/20/24 08:59 EZETIMIBE (Zetia) 10 mg AM PO 07/21/24 09:00 08/20/24 08:59 Famotidine (Pepcid 20mg Vial) 10 mg DAILY IV 07/20/24 09:00 08/19/24 08:59 07/20/24 11:00 10 MG Famotidine (Pepcid 20mg Tab) 20 mg DAILY PO 07/21/24 09:00 08/20/24 08:59 Famotidine (Pepcid 20mg Tab) 20 mg DAILY PO 07/21/24 09:00 08/20/24 08:59 Hydralazine HCl (APRESOLine 20MG INJ) 10 mg Q6H PRN IV For:SBP above 160;DBP above 90 07/20/24 02:30 08/19/24 02:29 Hydrocortisone (corTEF 20MG TAB) 20 mg BID PO 07/20/24 21:00 08/19/24 20:59 Hydromorphone HCl (DiLAUDid 0.5MG INJ) 0.5 mg Q6H PRN IVP SEVERE PAIN (7-10) 07/20/24 14:30 07/25/24 14:29 Levothyroxine Sodium (SYNTHroid 125MCG TAB) 125 mcg SYN PO 07/21/24 06:30 08/20/24 06:29 Miscellaneous Medication (Folic Acid/ Vitamin B Comp W-C (Pam-Parmjit Tablet)) 0.8 mg DAILY PO 07/21/24 09:00 08/20/24 08:59 UNV Ondansetron HCl (zoFRAN 4MG INJ) 4 mg Q6H PRN IV NAUSEA/VOMITING 07/20/24 02:30 08/19/24 02:29 Vitamin B Complex/ Vit C/Folic Acid (Nephrovite Tablet) 1 cap DAILY PO 07/21/24 09:00 08/20/24 08:59 Vital Signs (last 8hr) Date Time Temp Pulse Resp B/P (MAP) Pulse Ox O2 Delivery O2 Flow Rate FiO2 07/20/24 12:49 97.9 73 18 94/65 99 Room Air* 0 21 07/20/24 09:36 97.9 78 16 97/61 98 Room Air* 0 21 DIAGNOSTICS / RADIOLOGY: REASON: elevated livewr enzymes ORDERING PHYSICIAN: DULCE MARIA QUIROGA NEEDLE PUNCH MACHINE OPERATOR PROCEDURE: ABDOMEN - US ABDOMINAL COMPLETE US ABDOMINAL COMPLETE REASON: elevated livewr enzymes COMPARISON: None FINDINGS: There is moderate fatty infiltration of the liver. There are no focal mass lesions. The liver is borderline at 16 cm.There are stones present within the gallbladder. There is no wall thickening or pericholecystic edema. Right kidney is 10.8 x 5.4 x 5.5 cm, left 7 x 3.7 x 3.2 cm. There is a 2.2 cm right renal cyst. There is a stent visible in the left kidney, there is also a 6 mm nonobstructing stone. Spleen and common duct appear normal. Aorta and inferior vena cava appear normal. The pancreas appears normal as well. IMPRESSION: 1. Moderate fatty infiltration of the liver which is borderline in size. 2. Stent seen in the left kidney, there is no hydronephrosis, there is a 6 mm stone. 3. Otherwise unremarkable exam. DICTATED BY: SONYA VAN MD DATE: 07/20/24 1030 REASON: Pain ORDERING PHYSICIAN: JOANA ROSS PROCEDURE: ABD PEL WO - CT ABDOMEN/PELVIS W/O CONTRAST CT ABDOMEN/PELVIS W/O CONTRAST HISTORY: Pain COMPARISON: 10/24/2023 TECHNIQUE: Multiple sequential axial images of the abdomen and pelvis were obtained from the dome of the diaphragm through symphysis pubis. Patient was not given contrast through intravenous route. Oral contrast was not given. FINDINGS: No pleural effusion is seen bilaterally. Prominent interstitial markings are seen. There is no evidence of parenchymal disease or pulmonary nodule of the visualized lower lungs. Degenerative changes of the thoracolumbar spine are present. The heart is not enlarged. Gallstone is seen in the distended gallbladder. Liver measures 17 cm. There is left renal atrophy. There is left ureteral stent. The liver, spleen, adrenal glands and pancreas are unremarkable. There is a 18 x 11 mm right renal cyst. There is no evidence of hydronephrosis bilaterally. No evidence of renal stone is seen. There is diverticulosis. Fecal material is seen in the colon. There are normal size retroperitoneal and mesenteric lymph nodes. No ascites is seen. Atherosclerotic changes are present. Pelvic sidewalls are symmetric bilaterally. Bladder is poorly distended. IMPRESSION: 1. Gallstone in the distended gallbladder. Left ureteral stent with air collection in the left renal pelvis. There is left renal atrophy. There is diverticulosis. CT was performed with one or more following dose reduction techniques: automated exposure control, adjustment of the mA and kv according to patient's size, or use of a iterative reconstruction technique. DICTATED BY: GERARDO MARR MD DATE: 07/19/242230 LABORATORY: [ ] Hematology Labs: Test 07/20/24 06:49 Range/Units White Blood Count 7.0 # 4.8-10.8 K/uL Red Blood Count 3.49 L 4.50-6.20 MIL/uL Hemoglobin 11.4 L 14.0-18.0 g/dL Hematocrit 33.9 L 42-54 % Mean Corpuscular Volume 97.1 79-99 fL Mean Corpuscular Hemoglobin 32.7 27.0-33.0 pg Mean Corpuscular Hemoglobin Concent 33.6 32.0-36.0 g/dL Red Cell Distribution Width 15.7 H 11.0-15.5 % Platelet Count 234 130-400 K/uL Mean Platelet Volume 10.7 H 7.5-10.5 fL Immature Granulocyte % (Auto) 2.0 H 0-1 % Neutrophils (%) (Auto) 58.6 40.0-77.0 % Lymphocytes (%) (Auto) 28.2 21.0-51.0 % Monocytes (%) (Auto) 7.5 3.0-13.0 % Eosinophils (%) (Auto) 3.0 0.0-8.0 % Basophils (%) (Auto) 0.7 0.0-5.0 % Neutrophils # (Auto) 4.1 1.8-7.7 K/uL Lymphocytes # (Auto) 2.0 1.0-4.8 K/uL Monocytes # (Auto) 0.5 0.1-1.0 K/uL Eosinophils # (Auto) 0.21 0.00-0.70 K/uL Basophils # (Auto) 0.05 0.00-0.20 K/uL Absolute Immature Granulocyte (auto 0.14 0-1 K/uL Nucleated Red Blood Cells 0.0 0.0-0.19 % Erythrocyte Sedimentation Rate 70 H 0-20 MM/HR Chemistry Labs: Test 07/20/24 06:49 07/19/24 20:41 Range/Units Sodium Level 142 136-145 mmol/L Potassium Level 3.0 *L 3.5-5.1 mmol/L Chloride Level 98 L 101-111 mmol/L Carbon Dioxide Level 32 21-32 mmol/L Blood Urea Nitrogen 32 H 7-18 mg/dL Creatinine 5.3 H 0.5-1.3 mg/dL Glomerular Filtration Rate Calc 12 >90 mL/min Random Glucose 115 H 70-105 mg/dL Total Calcium 9.6 8.5-10.1 mg/dL Total Bilirubin 1.8 #H 0.2-1.0 mg/dL Direct Bilirubin 1.3 #H 0.0-0.3 mg/dL Aspartate Amino Transf (AST/SGOT) 833 *H 10-37 U/L Alanine Aminotransferase (ALT/SGPT) 739 #*H 12-78 U/L Alkaline Phosphatase 417 H 50-136 U/L Total Protein 7.9 6.0-8.3 g/dL Albumin 3.5 3.5-5.0 g/dL Lipase 65 16-77 U/L ASSESSMENT: Patient admitted with abdominal pain with cholecystitis and being considered for MRCP and possible cholecystectomy End-stage renal disease Anemia Suspected acute cholecystitis with cholelithiasis 6 mm stone per ultrasound abdomen 07/19/2024 Hypotension Elevated liver enzymes Uncontrolled diabetes mellitus type 2 Morbid Obesity Hypothyroidism PLAN: Labs and Diagnostics/ Radiology personally reviewed and interpreted by myself and supervising physician We have reviewed dialysis and external records in detail Continue dialysis schedule Wednesday If patient is to have surgery, dialysis to be done after surgery. No IV fluids. 1.5 L fluid restriction Continue to monitor H&H Epogen on dialysis days, as needed Continue with frequent monitoring of renal function, anemia, and electrolytes Order CBC, CMP and electrolytes in the morning May use Dilaudid 0.5 mg IV every 6 hours as needed for severe pain Monitor blood pressure adjust medication doses as needed Maintain normotensive state Strict intake, output, and daily weight should be monitored Please renally adjust medications. Avoid nephrotoxics and nonsteroidal drugs. We will continue to monitor the patient closely We have discussed with the other team physicians in detail about the care plan Thank you for allowing us to participate in the care of this patient ATTESTATION BY PHYSICIAN I have seen and examined the patient. I reviewed the documentation, medical decision making, and treatment plan as noted by the mid-level provider above. I agree with the findings and plan of care. ROMANA GIBSON MD, [facility] Jul 20, 2024 15:05 ROMANA GIBSON MD Jul 20, 2024 22:33
--- NOTE | 2024-07-20 15:19 | NUR ---
JASON FROM [facility] HERE TO TAKE PT FOR HIS ERCP
--- NOTE | 2024-07-20 16:34 | HMCIMG ---
MRCP(ABDWO)CHOLANGIOPANCREATOG REASON: R/O CBD OBST COMPARISON: None TECHNIQUE: Routine imaging protocol was performed in the coronal and axial plane. MRCP images were attempted, these are of suboptimal quality due to motion artifact, multiple acquisition attempts were made. FINDINGS: There are small stones present within the gallbladder. Common duct caliber appears normal at between 5 and 6 mm, the common duct appears to taper normally toward the head of the pancreas. Intrahepatic biliary tree is not distended. There are no focal liver lesions. Spleen, pancreas and right kidney appear unremarkable. Left kidney is atrophic. There are no focal fluid collections. There is no free fluid. IMPRESSION: 1. Mildly prominent common duct at between 5 and 6 mm, 510 no evidence of common duct stone, a small stone impacted at the ampulla can be present and difficult to visualize. 2. Cholelithiasis without evidence of acute cholecystitis. 3. Atrophic left kidney again noted.
--- NOTE | 2024-07-20 16:46 | NUR ---
PT HAS BEEN RETURNED FROM MRI/ERCP SCAN
[2024-07-20 17:58] LABS: APPEARANCE,URINE TURBID (CLEAR); BILIRUBIN,URINE 0.5 mg/dL (NEGATIVE); COLOR,URINE DARK-YELLOW (YELLOW); GLUCOSE, URINE (UA) NEGATIVE (NEGATIVE); KETONES,URINE NEGATIVE (NEGATIVE); LEUKOCYTE ESTERASE ,URINE 500 Leu/uL (NEGATIVE); NITRATE,URINE NEGATIVE (NEGATIVE); OCCULT BLOOD,URINE MODERATE (NEGATIVE); PH,URINE 6.5 (5.0-8.0); PROTEIN,URINE 300 mg/dL (NEGATIVE)
[2024-07-20 18:00] LABS: ADD UA MICROSCOPIC YES
[2024-07-20 18:07] LABS: BACTERIA,URINE RARE /HPF (None Seen); MUCUS,URINE RARE LPF (None Seen); RBC,URINE 26-50 /HPF (0-1); UNCLASSIFIED CRYSTAL 8 /HPF (None Seen); WBC CLUMP RARE /HPF (0-1); WBC,URINE 26-50 /HPF (0-1)
--- NOTE | 2024-07-20 18:56 | NUR ---
OTHER: FORGOT TO GIVE MED D/T ACUITY AND BUSINESS OF TWO OTHER PATIENTS.
--- NOTE | 2024-07-20 19:20 | NUR ---
REPORT ENDORSED TO JOSE UMANZOR
[2024-07-20 21:08] LABS: HEPATITIS A IGM ANTIBODY Non-Reactive (Nonreactive); HEPATITIS B SURFACE ANTIGEN Non-Reactive (Nonreactive); HEPATITIS C ANTIBODY Non-Reactive (Nonreactive)
[2024-07-21] VITALS (26 sets, daily range): BP systolic 91–119; BP diastolic 56–71; PULSE 65–84; RESP 16–19; TEMP 97.4–98.4; O2SAT 18–97
[2024-07-21 04:54] LABS: BASOPHILS # (AUTO) 0.07 K/uL (0.00-0.20); BASOPHILS % (AUTO) 0.9 % (0.0-5.0); EOSINOPHILS # (AUTO) 0.25 K/uL (0.00-0.70); EOSINOPHILS % (AUTO) 3.1 % (0.0-8.0); HEMATOCRIT 35.6 % (42-54); IMMATURE GRANULOCYTE ABSOLUTE 0.12 K/uL (0-1); LYMPHOCYTES # (AUTO) 2.2 K/uL (1.0-4.8); LYMPHOCYTES % (AUTO) 26.7 % (21.0-51.0); MEAN CORPUSCULAR HGB CONC 33.4 g/dL (32.0-36.0); MEAN CORPUSCULAR VOLUME 98.6 fL (79-99); MONOCYTES # (AUTO) 0.4 K/uL (0.1-1.0); MONOCYTES % (AUTO) 4.6 % (3.0-13.0); NEUTROPHILS # (AUTO) 5.1 K/uL (1.8-7.7); NEUTROPHILS % (AUTO) 63.2 % (40.0-77.0); PLATELET COUNT (AUTO) 252 K/uL (130-400); RED BLOOD CELL COUNT(AUTO) 3.61 MIL/uL (4.50-6.20); RED CELL DISTRIBUTION WIDTH 15.5 % (11.0-15.5); WHITE BLOOD COUNT (AUTO) 8.1 K/uL (4.8-10.8)
[2024-07-21 05:14] LABS: ALBUMIN 3.6 g/dL (3.5-5.0); CREATININE 6.2 mg/dL (0.5-1.3); MAGNESIUM 2.6 mg/dL (1.80-2.40); PHOSPHORUS 5.6 mg/dL (2.5-4.9); POTASSIUM 3.3 mmol/L (3.5-5.1); TOTAL PROTEIN, SERUM 7.9 g/dL (6.0-8.3)
[2024-07-21] MEDS: levoTHYROxine 125 MCG TABLET PO SCH (06:30)
[2024-07-21] MEDS ORDERED: NON-FORMULARY MEDICATION 1 EACH (Folic Acid/Vitamin B Comp W-C (Rena-Vite Tablet) 0.8 MG) PO SCH (09:00)
[2024-07-21] MEDS: doCUSate SODIUM 100 MG CAP PO SCH (09:00)
[2024-07-21] MEDS ORDERED: FAMOTIDINE 20MG TAB PO SCH ×2 (09:00)
[2024-07-21] MEDS: Vitamin B Complex/Vit C/Folic Acid PO SCH (09:00)
[2024-07-21] MEDS: EZETIMIBE 10 MG TAB PO SCH (09:00)
[2024-07-21] MEDS: COLCHicine 0.6 MG TABLET PO SCH (09:00)
--- NOTE | 2024-07-21 10:29 | PN ---
This is a 59-year-old male concerns choledocholithiasis versus cholecystitis Interval history This 59-year-old male seen in his room resting MRCP with a mildly prominent common bile duct between five and 6 mm GI team pending evaluation Total bilirubin elevated to two with LFTs trending down but still elevated Patient NPO Patient is pending dialysis possibly for today No abdominal pain on physical exam Physical exam General: Awake alert and oriented Heart: Regular rate and rhythm} Lungs: Clear to auscultation no distress Abdomen: [Soft, nontender, nondistended Assessment and plan Await for GI consultation If patient to be taken for ERCP we will await findings If no plan for ERCP patient has had HIDA scan performed Recommendation is for patient to undergo dialysis today but will await recommendations from Nephrology team Surgical team to be updated with any further acute events. Dr. Savage to be updated in patient's status Vitals/Labs Vital Signs Date Time Temp Pulse Resp B/P (MAP) Pulse Ox O2 Delivery O2 Flow Rate FiO2 07/21/24 08:48 97.9 69 18 105/67 97 Room Air 07/21/24 02:00 0 21 Laboratory Tests 07/21/24 04:34 Microbiology Date/Time Source Procedure Growth Status 07/20/24 17:47 Urine,Clean Catch - Final Complete Medications Current Medications Ondansetron HCl 4 mg Q6H PRN IV; Start 07/20/24 at 02:30; Stop 08/19/24 at 02:29 Hydralazine HCl 10 mg Q6H PRN IV; Start 07/20/24 at 02:30; Stop 08/19/24 at 02:29 Famotidine 10 mg DAILY IV Last administered on 07/20/24at 11:00; Start 07/20/24 at 09:00; Stop 08/19/24 at 08:59 Albumin Human 100 ml @ 0 mls/hr AD IV; Start 07/20/24 at 05:00; Stop 08/19/24 at 04:59 Albumin Human 100 ml @ As Directed STK-MED ONCE IV Last administered on 07/20/24at 05:02; Start 07/20/24 at 04:52; Stop 07/20/24 at 04:58; Status DC Midodrine 10 mg ONCE ONCE PO Last administered on 07/20/24at 11:00; Start 07/20/24 at 11:00; Stop 07/20/24 at 11:01; Status DC Calcium Acetate 667 mg TID PO Last administered on 07/20/24at 21:12; Start 07/20/24 at 14:00; Stop 08/19/24 at 13:59 Colchicine 0.6 mg DAILY PO; Start 07/21/24 at 09:00; Stop 08/20/24 at 08:59 Docusate Sodium 100 mg DAILY PO; Start 07/21/24 at 09:00; Stop 08/20/24 at 08:59 EZETIMIBE 10 mg AM PO; Start 07/21/24 at 09:00; Stop 08/20/24 at 08:59 Famotidine 20 mg DAILY PO; Start 07/21/24 at 09:00; Stop 08/20/24 at 08:59 Famotidine 20 mg DAILY PO; Start 07/21/24 at 09:00; Stop 08/20/24 at 08:59 Hydrocortisone 20 mg BID PO Last administered on 07/20/24at 21:12; Start 07/20/24 at 21:00; Stop 08/19/24 at 20:59 Vitamin B Complex/ Vit C/Folic Acid 1 cap DAILY PO; Start 07/21/24 at 09:00; Stop 08/20/24 at 08:59 Miscellaneous Medication 0.8 mg DAILY PO; Start 07/21/24 at 09:00; Stop 08/20/24 at 08:59; Status UNV Levothyroxine Sodium 125 mcg SYN PO; Start 07/21/24 at 06:30; Stop 08/20/24 at 06:29 Hydromorphone HCl 0.5 mg Q6H PRN IVP; Start 07/20/24 at 14:30; Stop 07/25/24 at 14:29 Ceftriaxone Sodium 2 gm Q24H IVPB; Start 07/21/24 at 08:30; Stop 07/31/24 at 08:29 TOMÁS STARR Jr. Jul 21, 2024 10:29
--- NOTE | 2024-07-21 10:34 | PN ---
[facility] PROGRESS NOTE Date of Service: Jul 21, 2024 Time of Service: 10:[address] Quintero SUBJECTIVE: [This is a 59-year-old male with past medical history of diabetes, hypothyroidism, osteoarthritis, left retro-orbital mass with removal and end- stage renal disease on hemodialysis who presents to the ED for complaints of abdominal pain located around mid abdomen described pain as discomfort.Patient states he had rice and chicken around 5:00pm and at 5:30 pm he started having abdominal pain associated with nausea but no vomiting.Patient states his last bowel movement was last night and it was normal. Seen and examined patient in the ED awake,alert and coherent,appears comfortable. Patient denies fever, chills, vomiting, diarrhea, chest pain, cough, palpitation and shortness of breath. Latest vital signs temperature 98.6, heart rate 86, blood pressure 110/65, saturation 98% on room air. Labs: WBC 10.8, hemoglobin 13.2, hematocrit 39.3, platelet count 251. Potassium 3.4, chloride 97, CO2 39, BUN 25, creatinine 4.5, GFR 14 glucose 138, total bili 1.1, direct bili 0.7, AST 576, ALT 553, alkaline phosphatase 401 total protein 8.[address] abdomen and pelvis without contrast result revealed gallstone in the distended gallbladder. Left ureteral stent with air collection in the left renal pelvis. There is left renal atrophy. There is diverticulosis. We will admit patient for further medical management. 07/20/24 patient was seen by nurse practitioner and physician during rounding in the emergency department in room ED 11 lying in bed. Patient was evaluated by the surgeon and per their request MRCP to be performed 1st once the procedure will be performed they might continue with cholecystectomy possibly tomorrow 07/21/2024 further plan/recommendation awaiting. Patient to receive dialysis tomorrow 07/21/2024. We will continue monitoring patient in the meantime a.m. labs. 07/21 patient was seen by nurse practitioner physician during rounding in room 317. Patient underwent MRCP and shows small stone impacted at ampulla. Cholelithiasis but no cholecystitis. Patient probably will need ERCP we will consult GI. Surgery on standby at this moment. Continue dialysis as scheduled with senior net software engineer. We will continue to monitor patient. A.m. labs. ] REVIEW OF SYSTEMS CONSTITUTIONAL: Denies fevers, chills, or night sweats. No unintentional weight loss reported. NEUROLOGICAL: Denies headache, amaurosis fugax, motor weakness, sensory deficit, vertigo/spinning sensation, gait abnormalities, or tremors. ENT: No hearing loss, otalgia, otorrhea, rhinitis, rhinorrhea, hoarseness, or sore throat. CARDIOVASCULAR: Denies any exertional angina, dyspnea on exertion, orthopnea, paroxysmal nocturnal dyspnea, palpitations, life-threatening arrhythmias, claudication. PULMONARY: Denies any shortness of breath, cough, phlegm/sputum, hemoptysis, pleuritic chest pain. SLEEP: Denies morning headaches, daytime somnolence or napping. Denies difficulty falling asleep, staying asleep, waking from sleep. Denies knowledge of snoring. GASTROINTESTINAL: Abdominal pain and nausea Denies any type of dysphagia to either liquids or solids. Denies vomiting, pyrosis, early satiety, diarrhea, constipation, or changes in stool consistency or caliber. Denies coffee-ground emesis, hematemesis, hematochezia, or melanotic stools. GENITOURINARY: Denies frequency, urgency, nocturia, hematuria or incontinence (Storage/Irritative symptoms.) Low urinary stream, straining to void, urinary intermittency or hesitancy, splitting of the voiding stream, terminal dribbling. ENDOCRINOLOGIC: Denies polyuria, polydipsia, polyphagia or heat/cold intolerances. HEMATOLOGIC: Denies thrombophilia/previous clots, or coagulopathy/bleeding disorders. ONCOLOGIC: Denies personal history of malignancy. DERMATOLOGIC: Denies rashes or pruritus. PSYCHIATRIC: Denies any suicidal or homicidal ideation. Denies hallucinations. PHYSICAL EXAM GENERAL APPEARANCE: The patient is awake, alert, and oriented, in no acute cardiopulmonary distress. NEUROLOGICAL: Cranial nerves II-XII grossly intact. Motor is 5/5 in bilateral upper and lower extremities proximal to distal. No sensory deficits. HEENT: Face is symmetric. Pupils are equal and reactive. Extraocular movements are intact. NECK: Supple. No JVD. No thyromegaly. No submental, submandibular, pre- /postauricular, occipital or supraclavicular lymphadenopathy. CHEST: Normal chest expansion. No Telemetry. LUNGS: Absence of any rales, rhonchi or any wheezing. CARDIOVASCULAR: Regular. S1 and S2 normal. No appreciable rubs, murmurs or gallops. ABDOMEN: Soft, nontender, and nondistended. There is no rebound, voluntary guarding, or rigidity. : Deferred. No Shea. EXTREMITIES: Non-edematous and not cyanotic. No clubbing. Good capillary refill. SKIN: No skin breakdown. Vital Signs (last 8hr) Date Time Temp Pulse Resp B/P (MAP) Pulse Ox O2 Delivery O2 Flow Rate FiO2 07/21/24 08:48 97.9 69 18 105/67 97 Room Air 07/21/24 04:00 98.4 70 18 96/62 96 Room Air LABS: Laboratory: Test 07/21/24 06:07 07/21/24 04:34 07/20/24 17:47 07/20/24 08:27 Range/Units Whole Blood Glucose 91 70-110 MG/DL White Blood Count 8.1 4.8-10.8 K/uL Red Blood Count 3.61 L 4.50-6.20 MIL/uL Hemoglobin 11.9 L 14.0-18.0 g/dL Hematocrit 35.6 L 42-54 % Mean Corpuscular Volume 98.6 79-99 fL Mean Corpuscular Hemoglobin 33.0 27.0-33.0 pg Mean Corpuscular Hemoglobin Concent 33.4 32.0-36.0 g/dL Red Cell Distribution Width 15.5 11.0-15.5 % Platelet Count 252 130-400 K/uL Mean Platelet Volume 10.4 7.5-10.5 fL Immature Granulocyte % (Auto) 1.5 H 0-1 % Neutrophils (%) (Auto) 63.2 40.0-77.0 % Lymphocytes (%) (Auto) 26.7 21.0-51.0 % Monocytes (%) (Auto) 4.6 3.0-13.0 % Eosinophils (%) (Auto) 3.1 0.0-8.0 % Basophils (%) (Auto) 0.9 0.0-5.0 % Neutrophils # (Auto) 5.1 1.8-7.7 K/uL Lymphocytes # (Auto) 2.2 1.0-4.8 K/uL Monocytes # (Auto) 0.4 0.1-1.0 K/uL Eosinophils # (Auto) 0.25 0.00-0.70 K/uL Basophils # (Auto) 0.07 0.00-0.20 K/uL Absolute Immature Granulocyte (auto 0.12 0-1 K/uL Nucleated Red Blood Cells 0.0 0.0-0.19 % Sodium Level 143 136-145 mmol/L Potassium Level 3.3 L 3.5-5.1 mmol/L Chloride Level 101 101-111 mmol/L Carbon Dioxide Level 32 21-32 mmol/L Blood Urea Nitrogen 44 H 7-18 mg/dL Creatinine 6.2 H 0.5-1.3 mg/dL Glomerular Filtration Rate Calc 10 >90 mL/min Random Glucose 97 70-105 mg/dL Total Calcium 9.6 8.5-10.1 mg/dL Phosphorus Level 5.6 H 2.5-4.9 mg/dL Magnesium Level 2.60 H 1.80-2.40 mg/dL Total Bilirubin 2.0 H 0.2-1.0 mg/dL Aspartate Amino Transf (AST/SGOT) 435 H 10-37 U/L Alanine Aminotransferase (ALT/SGPT) 718 *H 12-78 U/L Alkaline Phosphatase 458 H 50-136 U/L Total Protein 7.9 6.0-8.3 g/dL Albumin 3.6 3.5-5.0 g/dL Urine Color DARK-YELLOW YELLOW Urine Appearance TURBID CLEAR Urine pH 6.5 5.0-8.0 Urine Specific [place] 1.019 1.001-1.031 Urine Protein 300 H NEGATIVE mg/dL Urine Glucose (UA) NEGATIVE NEGATIVE mg/dL Urine Ketones NEGATIVE NEGATIVE mg/dL Urine Occult Blood MODERATE H NEGATIVE Urine Nitrate NEGATIVE NEGATIVE Urine Bilirubin 0.5 H NEGATIVE mg/dL Urine Urobilinogen 4.0 H 0.2-1.0 mg/dL Urine Leukocyte Esterase 500 H NEGATIVE Alok/uL Urine RBC 26-50 H 0-1 /HPF Urine WBC 26-50 H 0-1 /HPF Urine WBC Clumps (Auto) RARE 0-1 /HPF Urine Other Crystals (Auto) 8 None Seen /HPF Urine Bacteria RARE None Seen /HPF Hepatitis A IgM Antibody Non-Reactive Nonreactive Hepatitis B Surface Antigen. Non-Reactive Nonreactive Hepatitis C Antibody Non-Reactive Nonreactive Test 07/20/24 06:49 07/19/24 20:41 Range/Units Erythrocyte Sedimentation Rate 70 H 0-20 MM/HR Direct Bilirubin 1.3 #H 0.0-0.3 mg/dL Lipase 65 16-77 U/L Current Medications Medications (Trade) Dose Ordered Sig/Jarad Route PRN Reason Start Time Stop Time Status Last Admin Dose Admin Albumin Human 100 ml @ 0 mls/hr AD IV 07/20/24 05:00 08/19/24 04:59 Calcium Acetate (Phoslo 667mg Cap) 667 mg TID PO 07/20/24 14:00 08/19/24 13:59 07/20/24 21:12 667 MG Ceftriaxone Sodium (Rocephin 2gm Inj) 2 gm Q24H IVPB 07/21/24 08:30 07/31/24 08:29 Colchicine (COLCHicine 0.6mg TAB) 0.6 mg DAILY PO 07/21/24 09:00 08/20/24 08:59 Docusate Sodium (COLace 100MG CAP) 100 mg DAILY PO 07/21/24 09:00 08/20/24 08:59 EZETIMIBE (Zetia) 10 mg AM PO 07/21/24 09:00 08/20/24 08:59 Famotidine (Pepcid 20mg Vial) 10 mg DAILY IV 07/20/24 09:00 08/19/24 08:59 07/20/24 11:00 10 MG Famotidine (Pepcid 20mg Tab) 20 mg DAILY PO 07/21/24 09:00 08/20/24 08:59 Famotidine (Pepcid 20mg Tab) 20 mg DAILY PO 07/21/24 09:00 08/20/24 08:59 Hydralazine HCl (APRESOLine 20MG INJ) 10 mg Q6H PRN IV For:SBP above 160;DBP above 90 07/20/24 02:30 08/19/24 02:29 Hydrocortisone (corTEF 20MG TAB) 20 mg BID PO 07/20/24 21:00 08/19/24 20:59 07/20/24 21:12 20 MG Hydromorphone HCl (DiLAUDid 0.5MG INJ) 0.5 mg Q6H PRN IVP SEVERE PAIN (7-10) 07/20/24 14:30 07/25/24 14:29 Levothyroxine Sodium (SYNTHroid 125MCG TAB) 125 mcg SYN PO 07/21/24 06:30 08/20/24 06:29 Miscellaneous Medication (Folic Acid/ Vitamin B Comp W-C (Pam-Parmjit Tablet)) 0.8 mg DAILY PO 07/21/24 09:00 08/20/24 08:59 UNV Ondansetron HCl (zoFRAN 4MG INJ) 4 mg Q6H PRN IV NAUSEA/VOMITING 07/20/24 02:30 08/19/24 02:29 Vitamin B Complex/ Vit C/Folic Acid (Nephrovite Tablet) 1 cap DAILY PO 07/21/24 09:00 08/20/24 08:59 DIAGNOSTICS / RADIOLOGY: [ ] ASSESSMENT: Suspected acute cholecystitis with cholelithiasis POA 6 mm stone per ultrasound abdomen 07/19/[address] abdomen/pelvis 07/19/2024 Hypotension POA Elevated liver enzymes POA Iron-deficiency anemia POA End-stage renal disease on hemodialysis POA Uncontrolled diabetes mellitus type 2 with hypoglycemia POA Morbid Obesity POA Hypothyroidism POA Left ureter stent per CT abdomen/pelvis 07/19/2024 Electrolyte imbalance hypokalemia 3.0 , hypochloridemia 98 POA PLAN: Consult GI for ERCP MRCP shows small stone impacted at ampulla. Cholelithiasis no cholecystitis Surgery on standby for now We will admit patient in medical surgical floor We will keep patient nothing by mouth We will start on Famotidine 20 mg IV daily for GI prophylaxis We will add prn medication for fever,pain ,nausea and vomiting Home medication reconciled Nephrology consulted for ESRD dialysis CT abdomen/pelvis showed gallstones left ureter stent and the diverticulosis Ultrasound abdomen shows stent in the left kidney no hydronephrosis 6 mm stone A.m. labs Continue to monitor patient Case discussed with attending physician and came up with above treatment and plan of care. ATTESTATION BY PHYSICIAN I have seen and examined the patient. I reviewed the documentation, medical decision making, and treatment plan as noted by the mid-level provider above. I agree with the findings and plan of care. MIGDALIA QUINTERO MD, [employer] PROJECT ECONOMIST Jul 21, 2024 10:34
[2024-07-21 11:47] LABS: HEPATITIS B CORE IGM ANTIBODY Non-Reactive (Negative)
[2024-07-21] MEDS ORDERED: LIDOCAINE HCL-MPF 1% 2ML VIAL IJ SCH (14:20)
[2024-07-21] MEDS: 0.9%NACL 1000ML 1,000 ML IV SCH (14:46)
[2024-07-21] MEDS: CEFTRIAXONE 2GM VIAL IVPB SCH (18:41)
--- NOTE | 2024-07-21 23:39 | PN ---
NEPHROLOGY NOTE SUBJECTIVE: The patient has been evaluated, seen for dialysis, seen several times. OBJECTIVE: CHEST: Shows crackles. EXTREMITIES: With no edema. NEUROLOGIC: Unchanged. PROBLEMS: Renal failure and anemia. PLAN: To continue monitoring. Follow up on renal function. Follow up on electrolytes. Plan is to continue dialysis support. Continue monitoring of overall status. Intake, output, weight, and overall condition will be monitored. The patient has been evaluated and seen for dialysis and seen several times. Thank you for this patient. Overall condition remained guarded critical. TID: [id number] RECEIPT: [id number]
[2024-07-22] VITALS (25 sets, daily range): BP systolic 82–107; BP diastolic 41–65; PULSE 27–80; RESP 16–18; TEMP 96.7–98.5; O2SAT 93–100
--- NOTE | 2024-07-22 04:30 | PN ---
SUBJECTIVE: Has been evaluated for dialysis, seen several times. OBJECTIVE: CHEST: Shows crackles. PROBLEMS: The patient has renal failure, anemia, noncompliance. The patient has a close followup on electrolytes. Epogen or Aranesp as needed for worsening anemia. The patient will have a close followup and being considered for cholecystectomy in future. PLAN: We will be monitoring closely. I have discussed with other team physician and Epogen as needed. Thank you for this patient. TID: [id number] RECEIPT: [id number]
[2024-07-22 05:54] LABS: BASOPHILS # (AUTO) 0.06 K/uL (0.00-0.20); BASOPHILS % (AUTO) 0.7 % (0.0-5.0); EOSINOPHILS # (AUTO) 0.27 K/uL (0.00-0.70); EOSINOPHILS % (AUTO) 2.9 % (0.0-8.0); HEMATOCRIT 36.7 % (42-54); IMMATURE GRANULOCYTE ABSOLUTE 0.14 K/uL (0-1); LYMPHOCYTES # (AUTO) 2.3 K/uL (1.0-4.8); LYMPHOCYTES % (AUTO) 24.9 % (21.0-51.0); MEAN CORPUSCULAR HGB CONC 33.5 g/dL (32.0-36.0); MEAN CORPUSCULAR VOLUME 98.4 fL (79-99); MONOCYTES # (AUTO) 0.5 K/uL (0.1-1.0); MONOCYTES % (AUTO) 4.9 % (3.0-13.0); NEUTROPHILS % (AUTO) 65.1 % (40.0-77.0); PLATELET COUNT (AUTO) 249 K/uL (130-400); RED BLOOD CELL COUNT(AUTO) 3.73 MIL/uL (4.50-6.20); RED CELL DISTRIBUTION WIDTH 15.4 % (11.0-15.5); WHITE BLOOD COUNT (AUTO) 9.2 K/uL (4.8-10.8)
[2024-07-22 06:18] LABS: ALBUMIN 3.7 g/dL (3.5-5.0); BILIRUBIN,DIRECT 0.3 mg/dL (0.0-0.3); BILIRUBIN,TOTAL 0.7 mg/dL (0.2-1.0); CREATININE 5.1 mg/dL (0.5-1.3); MAGNESIUM 2.2 mg/dL (1.80-2.40); PHOSPHORUS 5.3 mg/dL (2.5-4.9); POTASSIUM 3.6 mmol/L (3.5-5.1); TOTAL PROTEIN, SERUM 8.3 g/dL (6.0-8.3)
[2024-07-22] MEDS ORDERED: proPOFol 10 MG/ML 20ML VIAL IV ONE (07:10)
[2024-07-22] MEDS ORDERED: LIDOCAINE PF 100MG/5ML (2%) SYRINGE 5ML ONE (07:11)
[2024-07-22] MEDS ORDERED: phenylEPHRINE HCL 10 MG/ML 1ML VIAL IV ONE (07:11)
--- NOTE | 2024-07-22 12:26 | PN ---
[facility] PROGRESS NOTE Date of Service: Jul 22, 2024 Time of Service: 12:[address] Black SUBJECTIVE: [This is a 59-year-old male with past medical history of diabetes, hypothyroidism, osteoarthritis, left retro-orbital mass with removal and end-stage renal disease on hemodialysis who presents to the ED for complaints of abdominal pain located around mid abdomen described pain as discomfort.Patient states he had rice and chicken around 5:00pm and at 5:30 pm he started having abdominal pain associated with nausea but no vomiting.Patient states his last bowel movement was last night and it was normal. Seen and examined patient in the ED awake,alert and coherent,appears comfortable. Patient denies fever, chills, vomiting, diarrhea, chest pain, cough, palpitation and shortness of breath. Latest vital signs temperature 98.6, heart rate 86, blood pressure 110/65, saturation 98% on room air. Labs: WBC 10.8, hemoglobin 13.2, hematocrit 39.3, platelet count 251. Potassium 3.4, chloride 97, CO2 39, BUN 25, creatinine 4.5, GFR 14 glucose 138, total bili 1.1, direct bili 0.7, AST 576, ALT 553, alkaline phosphatase 401 total protein 8.[address] abdomen and pelvis without contrast result revealed gallstone in the distended gallbladder. Left ureteral stent with air collection in the left renal pelvis. There is left renal atrophy. There is diverticulosis. We will admit patient for further medical management. 07/20/24 patient was seen by nurse practitioner and physician during rounding in the emergency department in room ED 11 lying in bed. Patient was evaluated by the surgeon and per their request MRCP to be performed 1st once the procedure will be performed they might continue with cholecystectomy possibly tomorrow 07/21/2024 further plan/recommendation awaiting. Patient to receive dialysis tomorrow 07/21/2024. We will continue monitoring patient in the meantime a.m. labs. 07/21 patient was seen by nurse practitioner physician during rounding in room 317. Patient underwent MRCP and shows small stone impacted at ampulla. Cholelithiasis but no cholecystitis. Patient probably will need ERCP we will consult GI. Surgery on standby at this moment. Continue dialysis as scheduled with healthcare economics consultant. We will continue to monitor patient. A.m. labs. 07/22 patient was seen by nurse practitioner physician. Patient is s/p EUS which shows stones. Per GI. Patient will undergo ERCP tomorrow 07/24/2024. We will continue monitoring patient in the meantime. A.m. ] REVIEW OF SYSTEMS CONSTITUTIONAL: Denies fevers, chills, or night sweats. No unintentional weight loss reported. NEUROLOGICAL: Denies headache, amaurosis fugax, motor weakness, sensory deficit, vertigo/spinning sensation, gait abnormalities, or tremors. ENT: No hearing loss, otalgia, otorrhea, rhinitis, rhinorrhea, hoarseness, or so re throat. CARDIOVASCULAR: Denies any exertional angina, dyspnea on exertion, orthopnea, paroxysmal nocturnal dyspnea, palpitations, life-threatening arrhythmias, claudication. PULMONARY: Denies any shortness of breath, cough, phlegm/sputum, hemoptysis, pleuritic chest pain. SLEEP: Denies morning headaches, daytime somnolence or napping. Denies difficulty falling asleep, staying asleep, waking from sleep. Denies knowledge of snoring. GASTROINTESTINAL: Abdominal pain and nausea Denies any type of dysphagia to either liquids or solids. Denies vomiting, pyrosis, early satiety, diarrhea, constipation, or changes in stool consistency or caliber. Denies coffee-ground emesis, hematemesis, hematochezia, or melanotic stools. GENITOURINARY: Denies frequency, urgency, nocturia, hematuria or incontinence (Storage/Irritative symptoms.) Low urinary stream, straining to void, urinary intermittency or hesitancy, splitting of the voiding stream, terminal dribbling. ENDOCRINOLOGIC: Denies polyuria, polydipsia, polyphagia or heat/cold intolerances. HEMATOLOGIC: Denies thrombophilia/previous clots, or coagulopathy/bleeding disorders. ONCOLOGIC: Denies personal history of malignancy. DERMATOLOGIC: Denies rashes or pruritus. PSYCHIATRIC: Denies any suicidal or homicidal ideation. Denies hallucinations. PHYSICAL EXAM GENERAL APPEARANCE: The patient is awake, alert, and oriented, in no acute cardiopulmonary distress. NEUROLOGICAL: Cranial nerves II-XII grossly intact. Motor is 5/5 in bilateral upper and lower extremities proximal to distal. No sensory deficits. HEENT: Face is symmetric. Pupils are equal and reactive. Extraocular movements are intact. NECK: Supple. No JVD. No thyromegaly. No submental, submandibular, pre- /postauricular, occipital or supraclavicular lymphadenopathy. CHEST: Normal chest expansion. No Telemetry. LUNGS: Absence of any rales, rhonchi or any wheezing. CARDIOVASCULAR: Regular. S1 and S2 normal. No appreciable rubs, murmurs or gallops. ABDOMEN: Soft, nontender, and nondistended. There is no rebound, voluntary guarding, or rigidity. : Deferred. No Shea. EXTREMITIES: Non-edematous and not cyanotic. No clubbing. Good capillary refill. SKIN: No skin breakdown. Vital Signs (last 8hr) Date Time Temp Pulse Resp B/P (MAP) Pulse Ox O2 Delivery O2 Flow Rate FiO2 07/22/24 10:15 72 96/64 98 Room Air 07/22/24 09:45 72 85/57 96 Room Air 07/22/24 09:19 93 Room Air* 0 07/22/24 09:15 68 96/56 94 Room Air 07/22/24 09:00 67 90/55 95 Room Air 07/22/24 08:45 71 87/56 96 Room Air 07/22/24 08:30 97.7 72 18 83/57 93 Room Air 07/22/24 08:15 70 16 86/52 94 Room Air 07/22/24 08:10 70 16 90/55 94 Room Air 07/22/24 08:05 73 16 85/54 95 Room Air 07/22/24 08:00 72 16 92/41 100 Room Air 07/22/24 07:55 27 16 84/52 100 Room Air 07/22/24 07:50 72 16 82/54 100 MASK 10.0 07/22/24 07:45 68 16 82/56 100 MASK 10.0 07/22/24 07:40 96.6 70 16 97/56 100 MASK 10.0 07/22/24 06:50 Mask 10.0 07/22/24 06:50 Mask 07/22/24 06:50 96.6 71 16 100/64 100 MASK 10.0 07/22/24 04:44 98.4 80 18 95/62 97 Room Air LABS: Laboratory: Test 07/22/24 11:18 07/22/24 05:48 07/20/24 17:47 Range/Units Whole Blood Glucose 85 70-110 MG/DL White Blood Count 9.2 4.8-10.8 K/uL Red Blood Count 3.73 L 4.50-6.20 MIL/uL Hemoglobin 12.3 L 14.0-18.0 g/dL Hematocrit 36.7 L 42-54 % Mean Corpuscular Volume 98.4 79-99 fL Mean Corpuscular Hemoglobin 33.0 27.0-33.0 pg Mean Corpuscular Hemoglobin Concent 33.5 32.0-36.0 g/dL Red Cell Distribution Width 15.4 11.0-15.5 % Platelet Count 249 130-400 K/uL Mean Platelet Volume 10.2 7.5-10.5 fL Immature Granulocyte % (Auto) 1.5 H 0-1 % Neutrophils (%) (Auto) 65.1 40.0-77.0 % Lymphocytes (%) (Auto) 24.9 21.0-51.0 % Monocytes (%) (Auto) 4.9 3.0-13.0 % Eosinophils (%) (Auto) 2.9 0.0-8.0 % Basophils (%) (Auto) 0.7 0.0-5.0 % Neutrophils # (Auto) 6.0 1.8-7.7 K/uL Lymphocytes # (Auto) 2.3 1.0-4.8 K/uL Monocytes # (Auto) 0.5 0.1-1.0 K/uL Eosinophils # (Auto) 0.27 0.00-0.70 K/uL Basophils # (Auto) 0.06 0.00-0.20 K/uL Absolute Immature Granulocyte (auto 0.14 0-1 K/uL Nucleated Red Blood Cells 0.0 0.0-0.19 % Sodium Level 137 136-145 mmol/L Potassium Level 3.6 3.5-5.1 mmol/L Chloride Level 96 L 101-111 mmol/L Carbon Dioxide Level 30 21-32 mmol/L Blood Urea Nitrogen 33 H 7-18 mg/dL Creatinine 5.1 H 0.5-1.3 mg/dL Glomerular Filtration Rate Calc 12 >90 mL/min Random Glucose 91 70-105 mg/dL Total Calcium 9.3 8.5-10.1 mg/dL Phosphorus Level 5.3 H 2.5-4.9 mg/dL Magnesium Level 2.20 1.80-2.40 mg/dL Total Bilirubin 0.7 0.2-1.0 mg/dL Direct Bilirubin 0.3 0.0-0.3 mg/dL Aspartate Amino Transf (AST/SGOT) 185 H 10-37 U/L Alanine Aminotransferase (ALT/SGPT) 496 H 12-78 U/L Alkaline Phosphatase 429 H 50-136 U/L Total Protein 8.3 6.0-8.3 g/dL Albumin 3.7 3.5-5.0 g/dL Urine Color DARK-YELLOW YELLOW Urine Appearance TURBID CLEAR Urine pH 6.5 5.0-8.0 Urine Specific [place] 1.019 1.001-1.031 Urine Protein 300 H NEGATIVE mg/dL Urine Glucose (UA) NEGATIVE NEGATIVE mg/dL Urine Ketones NEGATIVE NEGATIVE mg/dL Urine Occult Blood MODERATE H NEGATIVE Urine Nitrate NEGATIVE NEGATIVE Urine Bilirubin 0.5 H NEGATIVE mg/dL Urine Urobilinogen 4.0 H 0.2-1.0 mg/dL Urine Leukocyte Esterase 500 H NEGATIVE Alok/uL Urine RBC 26-50 H 0-1 /HPF Urine WBC 26-50 H 0-1 /HPF Urine WBC Clumps (Auto) RARE 0-1 /HPF Urine Other Crystals (Auto) 8 None Seen /HPF Urine Bacteria RARE None Seen /HPF Current Medications Medications (Trade) Dose Ordered Sig/Jarad Route PRN Reason Start Time Stop Time Status Last Admin Dose Admin Albumin Human 100 ml @ 0 mls/hr AD IV 07/20/24 05:00 07/21/24 14:12 DC Calcium Acetate (Phoslo 667mg Cap) 667 mg TID PO 07/20/24 14:00 08/19/24 13:59 07/22/24 09:19 667 MG Ceftriaxone Sodium (Rocephin 2gm Inj) 2 gm Q24H IVPB 07/21/24 08:30 07/31/24 08:29 07/22/24 09:19 2 GM Colchicine (COLCHicine 0.6mg TAB) 0.6 mg DAILY PO 07/21/24 09:00 08/20/24 08:59 07/22/24 09:19 0.6 MG Docusate Sodium (COLace 100MG CAP) 100 mg DAILY PO 07/21/24 09:00 08/20/24 08:59 07/22/24 09:19 100 MG EZETIMIBE (Zetia) 10 mg AM PO 07/21/24 09:00 08/20/24 08:59 07/22/24 09:19 10 MG Famotidine (Pepcid 20mg Vial) 10 mg DAILY IV 07/20/24 09:00 08/19/24 08:59 07/22/24 09:34 10 MG Famotidine (Pepcid 20mg Tab) 20 mg DAILY PO 07/21/24 09:00 07/21/24 14:12 DC Famotidine (Pepcid 20mg Tab) 20 mg DAILY PO 07/21/24 09:00 07/21/24 14:12 DC Hydralazine HCl (APRESOLine 20MG INJ) 10 mg Q6H PRN IV For:SBP above 160;DBP above 90 07/20/24 02:30 08/19/24 02:29 Hydrocortisone (corTEF 20MG TAB) 20 mg BID PO 07/20/24 21:00 08/19/24 20:59 07/22/24 09:19 20 MG Hydromorphone HCl (DiLAUDid 0.5MG INJ) 0.5 mg Q6H PRN IVP SEVERE PAIN (7-10) 07/20/24 14:30 07/25/24 14:29 Levothyroxine Sodium (SYNTHroid 125MCG TAB) 125 mcg SYN PO 07/21/24 06:30 08/20/24 06:29 Lidocaine HCl (Lidocaine HCl Mpf 1% 2ml Vial) 0.5 ml AD IJ 07/21/24 14:20 07/21/24 14:35 DC Miscellaneous Medication (Folic Acid/ Vitamin B Comp W-C (Pam-Parmjit Tablet)) 0.8 mg DAILY PO 07/21/24 09:00 08/20/24 08:59 UNV Ondansetron HCl (zoFRAN 4MG INJ) 4 mg Q6H PRN IV NAUSEA/VOMITING 07/20/24 02:30 08/19/24 02:29 Sodium Chloride 1,000 ml @ 0 mls/hr ONCE IV 07/21/24 14:30 08/20/24 14:29 07/21/24 14:46 1,000 MLS/HR Vitamin B Complex/ Vit C/Folic Acid (Nephrovite Tablet) 1 cap DAILY PO 07/21/24 09:00 08/20/24 08:59 07/22/24 09:19 1 CAP DIAGNOSTICS / RADIOLOGY: [ ] ASSESSMENT: Suspected acute cholecystitis with cholelithiasis POA 6 mm stone per ultrasound abdomen 07/19/[address] abdomen/pelvis 07/19/2024 Hypotension POA Elevated liver enzymes POA Iron-deficiency anemia POA End-stage renal disease on hemodialysis POA Uncontrolled diabetes mellitus type 2 with hypoglycemia POA Morbid Obesity POA Hypothyroidism POA Left ureter stent per CT abdomen/pelvis 07/19/2024 Electrolyte imbalance hypokalemia 3.0 , hypochloridemia 98 POA PLAN: Consult GI for ERCP MRCP shows small stone impacted at ampulla. Cholelithiasis no cholecystitis Surgery on standby for now We will admit patient in medical surgical floor We will keep patient nothing by mouth We will start on Famotidine 20 mg IV daily for GI prophylaxis We will add prn medication for fever,pain ,nausea and vomiting Home medication reconciled Nephrology consulted for ESRD dialysis CT abdomen/pelvis showed gallstones left ureter stent and the diverticulosis Ultrasound abdomen shows stent in the left kidney no hydronephrosis 6 mm stone A.m. labs Continue to monitor patient Case discussed with attending physician and came up with above treatment and plan of care. ATTESTATION BY PHYSICIAN I have seen and examined the patient. I reviewed the documentation, medical decision making, and treatment plan as noted by the mid-level provider above. I agree with the findings and plan of care. MD TOMMY Black KATARZYNA [employer] FURNACE OPERATOR Jul 22, 2024 12:26
--- NOTE | 2024-07-22 13:59 | PN ---
NEPHROLOGY PROGRESS NOTE Date/Time Patient Seen: Jul 22, 2024 SUBJECTIVE: This is a 59-year-old male with a past medical history of end-stage renal disease on hemodialysis Wednesday, diabetes mellitus type 2, hypothyroidism, osteoarthritis, left retro-orbital mass with removal. He presented to the emergency with complaints of abdominal pain. Patient states he has been compliant with hemodialysis sessions. CT of the abdomen and pelvis showed Gallstone in the distended gallbladder. Left ureteral stent with air collection in the left renal pelvis. There is left renal atrophy. There is diverticulosis. He continues to be followed by General surgery and GI. S/p EUS earlier today which showed stones Patient is to undergo ERCP tomorrow. He tolerated dialysis without difficulty yesterday. Blood pressure is labile, patient is asymptomatic He was seen in the medical floor, in no acute distress No family at the bedside Prognosis remains guarded REVIEW OF SYSTEMS: GENERAL: Positive for abdominal pain NEUROLOGIC: Negative for any blurry vision, blind spots, double vision, facial asymmetry, dysphagia, dysarthria, hemiparesis, hemisensory deficits, vertigo, ataxia. HEENT: Negative for any head trauma, neck trauma, neck stiffness, photophobia, phonophobia, sinusitis, rhinitis. CARDIAC: Negative for any chest pain, dyspnea on exertion, paroxysmal nocturnal dyspnea, peripheral edema. PULMONARY: Negative for any shortness of breath, wheezing, COPD, or TB exposure. GASTROINTESTINAL: Negative for any abdominal pain, nausea, vomiting, bright red blood per rectum, melena. GENITOURINARY: Negative for any dysuria, hematuria, incontinence. INTEGUMENTARY: Negative for any rashes, cuts, insect bites. RHEUMATOLOGIC: Negative for any joint pains, photosensitive rashes, history of vasculitis or kidney problems. HEMATOLOGIC: Negative for any abnormal bruising, frequent infections or bleeding. PHYSICAL EXAM: GENERAL: Alert and oriented x 3. No acute distress. Well-nourished. EYES: EOMI. Anicteric. HENT: Moist mucous membranes. No scleral icterus. No cervical lymphadenopathy. LUNGS: Clear to auscultation bilaterally. No accessory muscle use. CARDIOVASCULAR: Regular rate and rhythm. No murmur. No JVD. ABDOMEN: Soft, non-tender and non-distended. No palpable masses. EXTREMITIES: No edema. Non-tender. SKIN: No rashes or lesions. Warm. NEUROLOGIC: No focal neurological deficits. CN II-XII grossly intact, but not individually tested. PSYCHIATRIC: Cooperative. Appropriate mood and affect. LABORATORY: [ ] Hematology Labs: Test 07/22/24 05:48 Range/Units White Blood Count 9.2 4.8-10.8 K/uL Red Blood Count 3.73 L 4.50-6.20 MIL/uL Hemoglobin 12.3 L 14.0-18.0 g/dL Hematocrit 36.7 L 42-54 % Mean Corpuscular Volume 98.4 79-99 fL Mean Corpuscular Hemoglobin 33.0 27.0-33.0 pg Mean Corpuscular Hemoglobin Concent 33.5 32.0-36.0 g/dL Red Cell Distribution Width 15.4 11.0-15.5 % Platelet Count 249 130-400 K/uL Mean Platelet Volume 10.2 7.5-10.5 fL Immature Granulocyte % (Auto) 1.5 H 0-1 % Neutrophils (%) (Auto) 65.1 40.0-77.0 % Lymphocytes (%) (Auto) 24.9 21.0-51.0 % Monocytes (%) (Auto) 4.9 3.0-13.0 % Eosinophils (%) (Auto) 2.9 0.0-8.0 % Basophils (%) (Auto) 0.7 0.0-5.0 % Neutrophils # (Auto) 6.0 1.8-7.7 K/uL Lymphocytes # (Auto) 2.3 1.0-4.8 K/uL Monocytes # (Auto) 0.5 0.1-1.0 K/uL Eosinophils # (Auto) 0.27 0.00-0.70 K/uL Basophils # (Auto) 0.06 0.00-0.20 K/uL Absolute Immature Granulocyte (auto 0.14 0-1 K/uL Nucleated Red Blood Cells 0.0 0.0-0.19 % Chemistry Labs: Test 07/22/24 11:18 07/22/24 05:48 Range/Units Whole Blood Glucose 85 70-110 MG/DL Sodium Level 137 136-145 mmol/L Potassium Level 3.6 3.5-5.1 mmol/L Chloride Level 96 L 101-111 mmol/L Carbon Dioxide Level 30 21-32 mmol/L Blood Urea Nitrogen 33 H 7-18 mg/dL Creatinine 5.1 H 0.5-1.3 mg/dL Glomerular Filtration Rate Calc 12 >90 mL/min Random Glucose 91 70-105 mg/dL Total Calcium 9.3 8.5-10.1 mg/dL Phosphorus Level 5.3 H 2.5-4.9 mg/dL Magnesium Level 2.20 1.80-2.40 mg/dL Total Bilirubin 0.7 0.2-1.0 mg/dL Direct Bilirubin 0.3 0.0-0.3 mg/dL Aspartate Amino Transf (AST/SGOT) 185 H 10-37 U/L Alanine Aminotransferase (ALT/SGPT) 496 H 12-78 U/L Alkaline Phosphatase 429 H 50-136 U/L Total Protein 8.3 6.0-8.3 g/dL Albumin 3.7 3.5-5.0 g/dL DIAGNOSTICS / RADIOLOGY: REASON: R/O CBD OBST ORDERING PHYSICIAN: MARY ESTRELLA MD PROCEDURE: MRCP WO - MRCP(ABDWO)CHOLANGIOPANCREATOG MRCP(ABDWO)CHOLANGIOPANCREATOG REASON: R/O CBD OBST COMPARISON: None TECHNIQUE: Routine imaging protocol was performed in the coronal and axial plane. MRCP images were attempted, these are of suboptimal quality due to motion artifact, multiple acquisition attempts were made. FINDINGS: There are small stones present within the gallbladder. Common duct caliber appears normal at between 5 and 6 mm, the common duct appears to taper normally toward the head of the pancreas. Intrahepatic biliary tree is not distended. There are no focal liver lesions. Spleen, pancreas and right kidney appear unremarkable. Left kidney is atrophic. There are no focal fluid collections. There is no free fluid. IMPRESSION: 1. Mildly prominent common duct at between 5 and 6 mm, 510 no evidence of common duct stone, a small stone impacted at the ampulla can be present and difficult to visualize. 2. Cholelithiasis without evidence of acute cholecystitis. 3. Atrophic left kidney again noted. DICTATED BY: SONYA VAN MD DATE: 07/20/24 1628 REASON: elevated livewr enzymes ORDERING PHYSICIAN: DULCE MARIA QUIROGA [employer]OP[employer]MER [employer] WR[employer]PER PROCEDURE: ABDOMEN - US ABDOMINAL COMPLETE US ABDOMINAL COMPLETE REASON: elevated livewr enzymes COMPARISON: None FINDINGS: There is moderate fatty infiltration of the liver. There are no focal mass lesions. The liver is borderline at 16 cm.There are stones present within the gallbladder. There is no wall thickening or pericholecystic edema. Right kidney is 10.8 x 5.4 x 5.5 cm, left 7 x 3.7 x 3.2 cm. There is a 2.2 cm right renal cyst. There is a stent visible in the left kidney, there is also a 6 mm nonobstructing stone. Spleen and common duct appear normal. Aorta and inferior vena cava appear normal. The pancreas appears normal as well. IMPRESSION: 1. Moderate fatty infiltration of the liver which is borderline in size. 2. Stent seen in the left kidney, there is no hydronephrosis, there is a 6 mm stone. 3. Otherwise unremarkable exam. DICTATED BY: SONYA VAN MD DATE: 07/20/24 1030 REASON: Pain ORDERING PHYSICIAN: JOANA ROSS PROCEDURE: ABD PEL WO - CT ABDOMEN/PELVIS W/O CONTRAST CT ABDOMEN/PELVIS W/O CONTRAST HISTORY: Pain COMPARISON: 10/24/2023 TECHNIQUE: Multiple sequential axial images of the abdomen and pelvis were obtained from the dome of the diaphragm through symphysis pubis. Patient was not given contrast through intravenous route. Oral contrast was not given. FINDINGS: No pleural effusion is seen bilaterally. Prominent interstitial markings are seen. There is no evidence of parenchymal disease or pulmonary nodule of the visualized lower lungs. Degenerative changes of the thoracolumbar spine are present. The heart is not enlarged. Gallstone is seen in the distended gallbladder. Liver measures 17 cm. There is left renal atrophy. There is left ureteral stent. The liver, spleen, adrenal glands and pancreas are unremarkable. There is a 18 x 11 mm right renal cyst. There is no evidence of hydronephrosis bilaterally. No evidence of renal stone is seen. There is diverticulosis. Fecal material is seen in the colon. There are normal size retroperitoneal and mesenteric lymph nodes. No ascites is seen. Atherosclerotic changes are present. Pelvic sidewalls are symmetric bilaterally. Bladder is poorly distended. IMPRESSION: 1. Gallstone in the distended gallbladder. Left ureteral stent with air collection in the left renal pelvis. There is left renal atrophy. There is diverticulosis. CT was performed with one or more following dose reduction techniques: automated exposure control, adjustment of the mA and kv according to patient's size, or use of a iterative reconstruction technique. DICTATED BY: GERARDO MARR MD DATE: 07/19/242230 ASSESSMENT: Patient admitted with abdominal pain with cholecystitis and being considered for MRCP and possible cholecystectomy End-stage renal disease Anemia Suspected acute cholecystitis with cholelithiasis 6 mm stone per ultrasound abdomen 07/19/2024 Hypotension Elevated liver enzymes Uncontrolled diabetes mellitus type 2 Morbid Obesity Hypothyroidism PLAN: Labs and Diagnostics/ Radiology personally reviewed and interpreted by myself and supervising physician We have reviewed dialysis and external records in detail Continue dialysis schedule Wednesday Pending ERCP tomorrow. Patient may have midodrine 10 mg p.o. before dialysis. Hold all blood pressure medications 1.5 L fluid restriction Continue to monitor H&H Epogen on dialysis days, as needed Continue with frequent monitoring of renal function, anemia, and electrolytes Order CBC, CMP and electrolytes in the morning May use Dilaudid 0.5 mg IV every 6 hours as needed for severe pain Monitor blood pressure adjust medication doses as needed Maintain normotensive state Strict intake, output, and daily weight should be monitored Please renally adjust medications. Avoid nephrotoxics and nonsteroidal drugs. We will continue to monitor the patient closely We have discussed with the other team physicians in detail about the care plan ATTESTATION BY PHYSICIAN I have seen and examined the patient. I reviewed the documentation, medical decision making, and treatment plan as noted by the mid-level provider above. I agree with the findings and plan of care. ROMANA GIBSON MD, [facility] Jul 22, 2024 13:59
--- NOTE | 2024-07-22 15:59 | PN ---
Patient has been full for cholecystitis and choledocholithiasis. Patient has been have any ERCP tomorrow. Patient had diabetes and he has a hemodialysis patient. Patient is in no severe distress at this point. I have discussed with the patient with the need to have the gallbladder removed in this admission. According to the patient nephrology has indicated to him to have the gallbladder removed the same day of dialysis. We will schedule him for robotic cholecystectomy on Wednesday morning. Have instructed the nurses to discuss this with the nephrology team. If so uk Wednesday please NPO after midnight in the concern for robotic cholecystectomy possible open Vitals/Labs Vital Signs Date Time Temp Pulse Resp B/P (MAP) Pulse Ox O2 Delivery O2 Flow Rate FiO2 07/22/24 15:56 97.9 64 96/61 95 Room Air 21 07/22/24 09:19 0 07/22/24 08:30 18 Laboratory Tests 07/22/24 05:48 MARY ESTRELLA MD Jul 22, 2024 15:59
[2024-07-23] VITALS (29 sets, daily range): BP systolic 90–137; BP diastolic 54–70; PULSE 44–71; RESP 15–18; TEMP 97.5–97.9; O2SAT 98–99
[2024-07-23 04:42] LABS: BASOPHILS # (AUTO) 0.03 K/uL (0.00-0.20); BASOPHILS % (AUTO) 0.4 % (0.0-5.0); EOSINOPHILS # (AUTO) 0.19 K/uL (0.00-0.70); EOSINOPHILS % (AUTO) 2.4 % (0.0-8.0); HEMATOCRIT 33.5 % (42-54); IMMATURE GRANULOCYTE ABSOLUTE 0.15 K/uL (0-1); LYMPHOCYTES # (AUTO) 2.2 K/uL (1.0-4.8); LYMPHOCYTES % (AUTO) 26.9 % (21.0-51.0); MEAN CORPUSCULAR HGB CONC 33.7 g/dL (32.0-36.0); MONOCYTES # (AUTO) 0.3 K/uL (0.1-1.0); MONOCYTES % (AUTO) 4.1 % (3.0-13.0); NEUTROPHILS # (AUTO) 5.2 K/uL (1.8-7.7); NEUTROPHILS % (AUTO) 64.3 % (40.0-77.0); PLATELET COUNT (AUTO) 245 K/uL (130-400); RED BLOOD CELL COUNT(AUTO) 3.42 MIL/uL (4.50-6.20)
[2024-07-23 05:02] LABS: ALBUMIN 3.4 g/dL (3.5-5.0); BILIRUBIN,TOTAL 0.5 mg/dL (0.2-1.0); CREATININE 5.7 mg/dL (0.5-1.3); MAGNESIUM 2.4 mg/dL (1.80-2.40); POTASSIUM 3.2 mmol/L (3.5-5.1); TOTAL PROTEIN, SERUM 7.5 g/dL (6.0-8.3)
[2024-07-23] MEDS: miDODRine HCL 5 MG TABLET PO SCH (05:03)
[2024-07-23] MEDS: miDODRine HCL 5 MG TABLET ONE (05:46)
--- NOTE | 2024-07-23 06:36 | NUR ---
PATIENT TAKEN TO GI LAB FOR ERCP PROCEDURE. NO COMPLICATIONS NOTED. ALL PATIENT'S BELONGINGS LEFT ON BEDSIDE TABLE IN ROOM.
[2024-07-23] MEDS ORDERED: rocuRONium bROMide 10MG/1ML 5ML VL ONE (06:58)
[2024-07-23] MEDS ORDERED: FENTanyl CITRate PF 50 MCG/1 ML 2ML VIAL ONE (06:58)
[2024-07-23] MEDS ORDERED: phenylEPHRINE HCL 10 MG/ML 1ML VIAL IV ONE (06:58)
[2024-07-23] MEDS ORDERED: proPOFol 10 MG/ML 20ML VIAL IV ONE (06:58)
[2024-07-23] MEDS ORDERED: IOHEXOL-350 50ML VIAL IV ONE (08:14)
[2024-07-23] MEDS: INDOMETHACIN 100 MG SUPP.RECT RC ONE (08:39)
--- NOTE | 2024-07-23 09:10 | NUR ---
ABNORMAL VS HEART RATE NOTED 40-50s SUSTAINED. INFORMED GALA POTTS THAT PATIENT IS AAOX3, BP STABLE, PALPABLE BILATERAL RADIAL PULSES NOTED, GALA STATES PATIENT IS OK WITH LOW HEART RATE AT THIE TIME, NO NEW ORDERS GIVEN, WILL INFORM FLOOR NURSE UP ON FLOOR. Addendum: 07/23/24 at 0917 by EDUARDO SALDIVAR RN RN Amended: Links added.
--- NOTE | 2024-07-23 09:13 | HMCIMG ---
INTRAOPERATIVE FLUOROSCOPIC GUIDANCE UP TO 1 HOUR. IMPRESSION: Intraoperative fluoroscopic guidance was provided for ERCP, which was performed by Dr. Quevedo. Total fluoroscopy time was 40.7 seconds, and administered dose, 10.23 mGy. A total of 5 spot images obtained. Please refer to the procedure note for further details.
[2024-07-23] MEDS: dexaMETHasone SOD PHOSPHATE 4 MG/ML 1ML VIAL ONE (09:37)
[2024-07-23] MEDS: ondanSETRON 4MG INJ ONE (09:38)
--- NOTE | 2024-07-23 11:54 | PN ---
[facility] PROGRESS NOTE Date of Service: Jul 23, 2024 Time of Service: 11:[address] Black SUBJECTIVE: [This is a 59-year-old male with past medical history of diabetes, hypothyroidism, osteoarthritis, left retro-orbital mass with removal and end-stage renal disease on hemodialysis who presents to the ED for complaints of abdominal pain located around mid abdomen described pain as discomfort.Patient states he had rice and chicken around 5:00pm and at 5:30 pm he started having abdominal pain associated with nausea but no vomiting.Patient states his last bowel movement was last night and it was normal. Seen and examined patient in the ED awake,alert and coherent,appears comfortable. Patient denies fever, chills, vomiting, diarrhea, chest pain, cough, palpitation and shortness of breath. Latest vital signs temperature 98.6, heart rate 86, blood pressure 110/65, saturation 98% on room air. Labs: WBC 10.8, hemoglobin 13.2, hematocrit 39.3, platelet count 251. Potassium 3.4, chloride 97, CO2 39, BUN 25, creatinine 4.5, GFR 14 glucose 138, total bili 1.1, direct bili 0.7, AST 576, ALT 553, alkaline phosphatase 401 total protein 8.[address] abdomen and pelvis without contrast result revealed gallstone in the distended gallbladder. Left ureteral stent with air collection in the left renal pelvis. There is left renal atrophy. There is diverticulosis. We will admit patient for further medical management. 07/20/24 patient was seen by nurse practitioner and physician during rounding in the emergency department in room ED 11 lying in bed. Patient was evaluated by the surgeon and per their request MRCP to be performed 1st once the procedure will be performed they might continue with cholecystectomy possibly tomorrow 07/21/2024 further plan/recommendation awaiting. Patient to receive dialysis tomorrow 07/21/2024. We will continue monitoring patient in the meantime a.m. labs. 07/21 patient was seen by nurse practitioner physician during rounding in room 317. Patient underwent MRCP and shows small stone impacted at ampulla. Cholelithiasis but no cholecystitis. Patient probably will need ERCP we will consult GI. Surgery on standby at this moment. Continue dialysis as scheduled with information systems coordinator. We will continue to monitor patient. A.m. labs. 07/22 patient was seen by nurse practitioner physician. Patient is s/p EUS which shows stones. Per GI. Patient will undergo ERCP tomorrow 07/24/2024. We will continue monitoring patient in the meantime. A.m. 07/23 patient was seen by BOBBIN HANDLER and physician during rounding. Patient is s/p ERCP. Per surgeon patient will undergo robotic cholecystectomy possible open tomorrow 07/24/2024. Patient will be NPO after midnight. Direct bilirubin improved to be four was 1.3 today is 0.5 AST was 435 today is 85. ALT was 718 now is 324. Urine culture still pending. Dialysis as per information systems coordinator. We will continue to monitor the patient in the meantime. A.m. labs.] REVIEW OF SYSTEMS CONSTITUTIONAL: Denies fevers, chills, or night sweats. No unintentional weight loss reported. NEUROLOGICAL: Denies headache, amaurosis fugax, motor weakness, sensory deficit, vertigo/spinning sensation, gait abnormalities, or tremors. ENT: No hearing loss, otalgia, otorrhea, rhinitis, rhinorrhea, hoarseness, or sore throat. CARDIOVASCULAR: Denies any exertional angina, dyspnea on exertion, orthopnea, paroxysmal nocturnal dyspnea, palpitations, life-threatening arrhythmias, claudication. PULMONARY: Denies any shortness of breath, cough, phlegm/sputum, hemoptysis, pleuritic chest pain. SLEEP: Denies morning headaches, daytime somnolence or napping. Denies difficulty falling asleep, staying asleep, waking from sleep. Denies knowledge of snoring. GASTROINTESTINAL: Abdominal pain and nausea Denies any type of dysphagia to either liquids or solids. Denies vomiting, pyrosis, early satiety, diarrhea, constipation, or changes in stool consistency or caliber. Denies coffee-ground emesis, hematemesis, hematochezia, or melanotic stools. GENITOURINARY: Denies frequency, urgency, nocturia, hematuria or incontinence (Storage/Irritative symptoms.) Low urinary stream, straining to void, urinary intermittency or hesitancy, splitting of the voiding stream, terminal dribbling. ENDOCRINOLOGIC: Denies polyuria, polydipsia, polyphagia or heat/cold intolerances. HEMATOLOGIC: Denies thrombophilia/previous clots, or coagulopathy/bleeding disorders. ONCOLOGIC: Denies personal history of malignancy. DERMATOLOGIC: Denies rashes or pruritus. PSYCHIATRIC: Denies any suicidal or homicidal ideation. Denies hallucinations. PHYSICAL EXAM GENERAL APPEARANCE: The patient is awake, alert, and oriented, in no acute cardiopulmonary distress. NEUROLOGICAL: Cranial nerves II-XII grossly intact. Motor is 5/5 in bilateral upper and lower extremities proximal to distal. No sensory deficits. HEENT: Face is symmetric. Pupils are equal and reactive. Extraocular movements are intact. NECK: Supple. No JVD. No thyromegaly. No submental, submandibular, pre- /postauricular, occipital or supraclavicular lymphadenopathy. CHEST: Normal chest expansion. No Telemetry. LUNGS: Absence of any rales, rhonchi or any wheezing. CARDIOVASCULAR: Regular. S1 and S2 normal. No appreciable rubs, murmurs or gallops. ABDOMEN: Soft, nontender, and nondistended. There is no rebound, voluntary guarding, or rigidity. : Deferred. No Shea. EXTREMITIES: Non-edematous and not cyanotic. No clubbing. Good capillary refill. SKIN: No skin breakdown. Vital Signs (last 8hr) Date Time Temp Pulse Resp B/P (MAP) Pulse Ox O2 Delivery O2 Flow Rate FiO2 07/23/24 09:17 97.9 49 16 126/63 97 Nasal Cannula 2.0 07/23/24 09:11 97.9 46 16 124/63 97 Nasal Cannula 2.0 07/23/24 09:04 49 16 123/61 97 Nasal Cannula 2.0 07/23/24 09:01 49 16 127/65 97 Nasal Cannula 2.0 07/23/24 08:55 47 16 123/62 97 Nasal Cannula 2.0 07/23/24 08:45 49 16 122/62 97 Nasal Cannula 2.0 07/23/24 08:40 47 16 121/60 97 Nasal Cannula 2.0 07/23/24 08:35 50 16 123/61 97 Nasal Cannula 2.0 07/23/24 08:30 48 16 117/59 97 Nasal Cannula 2.0 07/23/24 08:25 48 15 117/58 97 Nasal Cannula 2.0 07/23/24 08:20 53 15 122/54 98 Nasal Cannula 2.0 07/23/24 08:15 52 16 121/58 98 Nasal Cannula 2.0 07/23/24 08:10 97.7 51 124/58 Nasal Cannula 2.0 07/23/24 06:45 RA 07/23/24 06:45 62 18 125/58 96 Room Air LABS: Laboratory: Test 07/23/24 11:22 07/23/24 04:26 07/22/24 05:48 Range/Units Whole Blood Glucose 112 H 70-110 MG/DL White Blood Count 8.0 4.8-10.8 K/uL Red Blood Count 3.42 L 4.50-6.20 MIL/uL Hemoglobin 11.3 L 14.0-18.0 g/dL Hematocrit 33.5 L 42-54 % Mean Corpuscular Volume 98.0 79-99 fL Mean Corpuscular Hemoglobin 33.0 27.0-33.0 pg Mean Corpuscular Hemoglobin Concent 33.7 32.0-36.0 g/dL Red Cell Distribution Width 15.0 11.0-15.5 % Platelet Count 245 130-400 K/uL Mean Platelet Volume 10.4 7.5-10.5 fL Immature Granulocyte % (Auto) 1.9 H 0-1 % Neutrophils (%) (Auto) 64.3 40.0-77.0 % Lymphocytes (%) (Auto) 26.9 21.0-51.0 % Monocytes (%) (Auto) 4.1 3.0-13.0 % Eosinophils (%) (Auto) 2.4 0.0-8.0 % Basophils (%) (Auto) 0.4 0.0-5.0 % Neutrophils # (Auto) 5.2 1.8-7.7 K/uL Lymphocytes # (Auto) 2.2 1.0-4.8 K/uL Monocytes # (Auto) 0.3 0.1-1.0 K/uL Eosinophils # (Auto) 0.19 0.00-0.70 K/uL Basophils # (Auto) 0.03 0.00-0.20 K/uL Absolute Immature Granulocyte (auto 0.15 0-1 K/uL Nucleated Red Blood Cells 0.0 0.0-0.19 % Sodium Level 137 136-145 mmol/L Potassium Level 3.2 L 3.5-5.1 mmol/L Chloride Level 97 L 101-111 mmol/L Carbon Dioxide Level 27 21-32 mmol/L Blood Urea Nitrogen 44 H 7-18 mg/dL Creatinine 5.7 H 0.5-1.3 mg/dL Glomerular Filtration Rate Calc 11 >90 mL/min Random Glucose 97 70-105 mg/dL Total Calcium 9.3 8.5-10.1 mg/dL Magnesium Level 2.40 1.80-2.40 mg/dL Total Bilirubin 0.5 # 0.2-1.0 mg/dL Aspartate Amino Transf (AST/SGOT) 85 H 10-37 U/L Alanine Aminotransferase (ALT/SGPT) 324 #H 12-78 U/L Alkaline Phosphatase 336 H 50-136 U/L Total Protein 7.5 6.0-8.3 g/dL Albumin 3.4 L 3.5-5.0 g/dL Phosphorus Level 5.3 H 2.5-4.9 mg/dL Direct Bilirubin 0.3 0.0-0.3 mg/dL Current Medications Medications (Trade) Dose Ordered Sig/Jaard Route PRN Reason Start Time Stop Time Status Last Admin Dose Admin Albumin Human 100 ml @ 0 mls/hr AD IV 07/20/24 05:00 07/21/24 14:12 DC Calcium Acetate (Phoslo 667mg Cap) 667 mg TID PO 07/20/24 14:00 08/19/24 13:59 07/22/24 20:20 667 MG Ceftriaxone Sodium (Rocephin 2gm Inj) 2 gm Q24H IVPB 07/21/24 08:30 07/31/24 08:29 07/23/24 09:37 2 GM Colchicine (COLCHicine 0.6mg TAB) 0.6 mg DAILY PO 07/21/24 09:00 08/20/24 08:59 07/22/24 09:19 0.6 MG Docusate Sodium (COLace 100MG CAP) 100 mg DAILY PO 07/21/24 09:00 08/20/24 08:59 07/22/24 09:19 100 MG EZETIMIBE (Zetia) 10 mg AM PO 07/21/24 09:00 08/20/24 08:59 07/22/24 09:19 10 MG Famotidine (Pepcid 20mg Vial) 10 mg DAILY IV 07/20/24 09:00 08/19/24 08:59 07/23/24 09:37 10 MG Famotidine (Pepcid 20mg Tab) 20 mg DAILY PO 07/21/24 09:00 07/21/24 14:12 DC Famotidine (Pepcid 20mg Tab) 20 mg DAILY PO 07/21/24 09:00 07/21/24 14:12 DC Hydralazine HCl (APRESOLine 20MG INJ) 10 mg Q6H PRN IV For:SBP above 160;DBP above 90 07/20/24 02:30 08/19/24 02:29 Hydrocortisone (corTEF 20MG TAB) 20 mg BID PO 07/20/24 21:00 08/19/24 20:59 07/22/24 20:20 20 MG Hydromorphone HCl (DiLAUDid 0.5MG INJ) 0.5 mg Q6H PRN IVP SEVERE PAIN (7-10) 07/20/24 14:30 07/25/24 14:29 Levothyroxine Sodium (SYNTHroid 125MCG TAB) 125 mcg SYN PO 07/21/24 06:30 08/20/24 06:29 Lidocaine HCl (Lidocaine HCl Mpf 1% 2ml Vial) 0.5 ml AD IJ 07/21/24 14:20 07/21/24 14:35 DC Midodrine (PROAMatine 5 MG TABLET) 10 mg ONCE PO 07/22/24 19:30 07/22/24 23:59 DC 07/23/24 05:03 10 MG Miscellaneous Medication (Folic Acid/ Vitamin B Comp W-C (Pam-Parmjit Tablet)) 0.8 mg DAILY PO 07/21/24 09:00 08/20/24 08:59 UNV Ondansetron HCl (zoFRAN 4MG INJ) 4 mg Q6H PRN IV NAUSEA/VOMITING 07/20/24 02:30 08/19/24 02:29 Sodium Chloride 1,000 ml @ 0 mls/hr ONCE IV 07/21/24 14:30 08/20/24 14:29 07/21/24 14:46 1,000 MLS/HR Vitamin B Complex/ Vit C/Folic Acid (Nephrovite Tablet) 1 cap DAILY PO 07/21/24 09:00 08/20/24 08:59 11/16/24 09:19 1 CAP DIAGNOSTICS / RADIOLOGY: [ ] ASSESSMENT: Suspected acute cholecystitis with cholelithiasis POA 6 mm stone per ultrasound abdomen 07/19/[address] abdomen/pelvis 07/19/2024 Hypotension POA Elevated liver enzymes POA Iron-deficiency anemia POA End-stage renal disease on hemodialysis POA Uncontrolled diabetes mellitus type 2 with hypoglycemia POA Morbid Obesity POA Hypothyroidism POA Left ureter stent per CT abdomen/pelvis 07/19/2024 Electrolyte imbalance hypokalemia 3.0 , hypochloridemia 98 POA PLAN: ERCP performed 07/22/24 MRCP shows small stone impacted at ampulla. Cholelithiasis no cholecystitis robotic cholecystectomy with possible open 07/24/2024 with a echo Janette We will admit patient in medical surgical floor We will keep patient nothing by mouth We will start on Famotidine 20 mg IV daily for GI prophylaxis We will add prn medication for fever,pain ,nausea and vomiting Home medication reconciled Nephrology consulted for ESRD dialysis CT abdomen/pelvis showed gallstones left ureter stent and the diverticulosis Ultrasound abdomen shows stent in the left kidney no hydronephrosis 6 mm stone A.m. labs Continue to monitor patient Case discussed with attending physician and came up with above treatment and plan of care. ATTESTATION BY PHYSICIAN I have seen and examined the patient. I reviewed the documentation, medical decision making, and treatment plan as noted by the mid-level provider above. I agree with the findings and plan of care. MD TOMMY Black KAT[facility] [employer] SPECIALIST Jul 23, 2024 11:54
--- NOTE | 2024-07-23 13:24 | PN ---
NEPHROLOGY PROGRESS NOTE Date/Time Patient Seen: Jul 23, 2024 Reason for Consultation: 13:22 SUBJECTIVE: This is a 59-year-old male with a past medical history of end-stage renal disease on hemodialysis Wednesday, diabetes mellitus type 2, hypothyroidism, osteoarthritis, left retro-orbital mass with removal. He presented to the emergency with complaints of abdominal pain. Patient states he has been compliant with hemodialysis sessions. CT of the abdomen and pelvis showed Gallstone in the distended gallbladder. Left ureteral stent with air collection in the left renal pelvis. There is left renal atrophy. There is diverticulosis. He continues to be followed by General surgery and GI. S/p EUS earlier today which showed stones S/p ERCP today. Plan is for laparoscopic cholecystectomy tomorrow morning He has tolerated dialysis without difficulty. He was seen in the medical floor, in no acute distress No family at the bedside Prognosis remains guarded REVIEW OF SYSTEMS: GENERAL: Positive for abdominal pain NEUROLOGIC: Negative for any blurry vision, blind spots, double vision, facial asymmetry, dysphagia, dysarthria, hemiparesis, hemisensory deficits, vertigo, ataxia. HEENT: Negative for any head trauma, neck trauma, neck stiffness, photophobia, phonophobia, sinusitis, rhinitis. CARDIAC: Negative for any chest pain, dyspnea on exertion, paroxysmal nocturnal dyspnea, peripheral edema. PULMONARY: Negative for any shortness of breath, wheezing, COPD, or TB exposure. GASTROINTESTINAL: Negative for any abdominal pain, nausea, vomiting, bright red blood per rectum, melena. GENITOURINARY: Negative for any dysuria, hematuria, incontinence. INTEGUMENTARY: Negative for any rashes, cuts, insect bites. RHEUMATOLOGIC: Negative for any joint pains, photosensitive rashes, history of vasculitis or kidney problems. HEMATOLOGIC: Negative for any abnormal bruising, frequent infections or bleeding. PHYSICAL EXAM: GENERAL: Alert and oriented x 3. No acute distress. Well-nourished. EYES: EOMI. Anicteric. HENT: Moist mucous membranes. No scleral icterus. No cervical lymphadenopathy. LUNGS: Clear to auscultation bilaterally. No accessory muscle use. CARDIOVASCULAR: Regular rate and rhythm. No murmur. No JVD. ABDOMEN: Soft, non-tender and non-distended. No palpable masses. EXTREMITIES: No edema. Non-tender. SKIN: No rashes or lesions. Warm. NEUROLOGIC: No focal neurological deficits. CN II-XII grossly intact, but not individually tested. PSYCHIATRIC: Cooperative. Appropriate mood and affect. LABORATORY: [ ] Hematology Labs: Test 07/23/24 04:26 Range/Units White Blood Count 8.0 4.8-10.8 K/uL Red Blood Count 3.42 L 4.50-6.20 MIL/uL Hemoglobin 11.3 L 14.0-18.0 g/dL Hematocrit 33.5 L 42-54 % Mean Corpuscular Volume 98.0 79-99 fL Mean Corpuscular Hemoglobin 33.0 27.0-33.0 pg Mean Corpuscular Hemoglobin Concent 33.7 32.0-36.0 g/dL Red Cell Distribution Width 15.0 11.0-15.5 % Platelet Count 245 130-400 K/uL Mean Platelet Volume 10.4 7.5-10.5 fL Immature Granulocyte % (Auto) 1.9 H 0-1 % Neutrophils (%) (Auto) 64.3 40.0-77.0 % Lymphocytes (%) (Auto) 26.9 21.0-51.0 % Monocytes (%) (Auto) 4.1 3.0-13.0 % Eosinophils (%) (Auto) 2.4 0.0-8.0 % Basophils (%) (Auto) 0.4 0.0-5.0 % Neutrophils # (Auto) 5.2 1.8-7.7 K/uL Lymphocytes # (Auto) 2.2 1.0-4.8 K/uL Monocytes # (Auto) 0.3 0.1-1.0 K/uL Eosinophils # (Auto) 0.19 0.00-0.70 K/uL Basophils # (Auto) 0.03 0.00-0.20 K/uL Absolute Immature Granulocyte (auto 0.15 0-1 K/uL Nucleated Red Blood Cells 0.0 0.0-0.19 % Chemistry Labs: Test 07/23/24 11:22 07/23/24 04:26 07/22/24 05:48 Range/Units Whole Blood Glucose 112 H 70-110 MG/DL Sodium Level 137 136-145 mmol/L Potassium Level 3.2 L 3.5-5.1 mmol/L Chloride Level 97 L 101-111 mmol/L Carbon Dioxide Level 27 21-32 mmol/L Blood Urea Nitrogen 44 H 7-18 mg/dL Creatinine 5.7 H 0.5-1.3 mg/dL Glomerular Filtration Rate Calc 11 >90 mL/min Random Glucose 97 70-105 mg/dL Total Calcium 9.3 8.5-10.1 mg/dL Magnesium Level 2.40 1.80-2.40 mg/dL Total Bilirubin 0.5 # 0.2-1.0 mg/dL Aspartate Amino Transf (AST/SGOT) 85 H 10-37 U/L Alanine Aminotransferase (ALT/SGPT) 324 #H 12-78 U/L Alkaline Phosphatase 336 H 50-136 U/L Total Protein 7.5 6.0-8.3 g/dL Albumin 3.4 L 3.5-5.0 g/dL Phosphorus Level 5.3 H 2.5-4.9 mg/dL Direct Bilirubin 0.3 0.0-0.3 mg/dL DIAGNOSTICS / RADIOLOGY: REASON: ERCP DONE IN GI LAB BY DR KOEHLER ORDERING PHYSICIAN: MIGDALIA QUEVEDO MD PROCEDURE: C ARM - C ARM USAGE INTRAOPERATIVE FLUOROSCOPIC GUIDANCE UP TO 1 HOUR. IMPRESSION: Intraoperative fluoroscopic guidance was provided for ERCP, which was performed by Dr. Quevedo. Total fluoroscopy time was 40.7 seconds, and administered dose, 10.23 mGy. A total of 5 spot images obtained. Please refer to the procedure note for further details. DICTATED BY: ZAHEER BOONE MD DATE: 07/23/24909 REASON: CHOLEDUCHOLITHIASIS ORDERING PHYSICIAN: RODO DENNIS MD PROCEDURE: ERCP - ERCP BILI/PANC DUCT INTRAOPERATIVE FLUOROSCOPIC GUIDANCE UP TO 1 HOUR. IMPRESSION: Intraoperative fluoroscopic guidance was provided for ERCP, which was performed by Dr. Quevedo. Total fluoroscopy time was 40.7 seconds, and administered dose, 10.23 mGy. A total of 5 spot images obtained. Please refer to the procedure note for further details. DICTATED BY: ZAHEER BOONE MD DATE: 07/23/24909 REASON: R/O CBD OBST ORDERING PHYSICIAN: MARY ESTRELLA MD PROCEDURE: MRCP WO - MRCP(ABDWO)CHOLANGIOPANCREATOG MRCP(ABDWO)CHOLANGIOPANCREATOG REASON: R/O CBD OBST COMPARISON: None TECHNIQUE: Routine imaging protocol was performed in the coronal and axial plane. MRCP images were attempted, these are of suboptimal quality due to motion artifact, multiple acquisition attempts were made. FINDINGS: There are small stones present within the gallbladder. Common duct caliber appears normal at between 5 and 6 mm, the common duct appears to taper normally toward the head of the pancreas. Intrahepatic biliary tree is not distended. There are no focal liver lesions. Spleen, pancreas and right kidney appear unremarkable. Left kidney is atrophic. There are no focal fluid collections. There is no free fluid. IMPRESSION: 1. Mildly prominent common duct at between 5 and 6 mm, 510 no evidence of common duct stone, a small stone impacted at the ampulla can be present and difficult to visualize. 2. Cholelithiasis without evidence of acute cholecystitis. 3. Atrophic left kidney again noted. DICTATED BY: SONYA VAN MD DATE: 07/20/24 1628 REASON: elevated livewr enzymes ORDERING PHYSICIAN: DULCE MARIA QUIROGA TRAFFIC ENUMERATOR PROCEDURE: ABDOMEN - US ABDOMINAL COMPLETE US ABDOMINAL COMPLETE REASON: elevated livewr enzymes COMPARISON: None FINDINGS: There is moderate fatty infiltration of the liver. There are no focal mass lesions. The liver is borderline at 16 cm.There are stones present within the gallbladder. There is no wall thickening or pericholecystic edema. Right kidney is 10.8 x 5.4 x 5.5 cm, left 7 x 3.7 x 3.2 cm. There is a 2.2 cm right renal cyst. There is a stent visible in the left kidney, there is also a 6 mm nonobstructing stone. Spleen and common duct appear normal. Aorta and inferior vena cava appear normal. The pancreas appears normal as well. IMPRESSION: 1. Moderate fatty infiltration of the liver which is borderline in size. 2. Stent seen in the left kidney, there is no hydronephrosis, there is a 6 mm stone. 3. Otherwise unremarkable exam. DICTATED BY: SONYA VAN MD DATE: 07/20/24 1030 REASON: Pain ORDERING PHYSICIAN: JOANA ROSS PROCEDURE: ABD PEL WO - CT ABDOMEN/PELVIS W/O CONTRAST CT ABDOMEN/PELVIS W/O CONTRAST HISTORY: Pain COMPARISON: 10/24/2023 TECHNIQUE: Multiple sequential axial images of the abdomen and pelvis were obtained from the dome of the diaphragm through symphysis pubis. Patient was not given contrast through intravenous route. Oral contrast was not given. FINDINGS: No pleural effusion is seen bilaterally. Prominent interstitial markings are seen. There is no evidence of parenchymal disease or pulmonary nodule of the visualized lower lungs. Degenerative changes of the thoracolumbar spine are present. The heart is not enlarged. Gallstone is seen in the distended gallbladder. Liver measures 17 cm. There is left renal atrophy. There is left ureteral stent. The liver, spleen, adrenal glands and pancreas are unremarkable. There is a 18 x 11 mm right renal cyst. There is no evidence of hydronephrosis bilaterally. No evidence of renal stone is seen. There is diverticulosis. Fecal material is seen in the colon. There are normal size retroperitoneal and mesenteric lymph nodes. No ascites is seen. Atherosclerotic changes are present. Pelvic sidewalls are symmetric bilaterally. Bladder is poorly distended. IMPRESSION: 1. Gallstone in the distended gallbladder. Left ureteral stent with air collection in the left renal pelvis. There is left renal atrophy. There is diverticulosis. CT was performed with one or more following dose reduction techniques: automated exposure control, adjustment of the mA and kv according to patient's size, or use of a iterative reconstruction technique. DICTATED BY: GERARDO MARR MD DATE: 07/19/242230 ASSESSMENT: Abdominal pain with cholecystitis End-stage renal disease Anemia Suspected acute cholecystitis with cholelithiasis 6 mm stone per ultrasound abdomen 07/19/2024 Hypotension Elevated liver enzymes Uncontrolled diabetes mellitus type 2 Morbid Obesity Hypothyroidism PLAN: Labs and Diagnostics/ Radiology personally reviewed and interpreted by myself and supervising physician We have reviewed dialysis and external records in detail Laparoscopic cholecystectomy is planned for tomorrow morning, dialysis to follow Continue dialysis schedule Wednesday Patient may have midodrine 10 mg p.o. before dialysis. Hold all blood pressure medications 1.5 L fluid restriction Continue to monitor H&H Epogen on dialysis days, as needed Continue with frequent monitoring of renal function, anemia, and electrolytes Order CBC, CMP and electrolytes in the morning May use Dilaudid 0.5 mg IV every 6 hours as needed for severe pain Monitor blood pressure adjust medication doses as needed Maintain normotensive state Strict intake, output, and daily weight should be monitored Please renally adjust medications. Avoid nephrotoxics and nonsteroidal drugs. We will continue to monitor the patient closely We have discussed with the other team physicians in detail about the care plan ATTESTATION BY PHYSICIAN I have seen and examined the patient. I reviewed the documentation, medical decision making, and treatment plan as noted by the mid-level provider above. I agree with the findings and plan of care. ROMANA GIBSON MD, [facility] Jul 23, 2024 13:24
[2024-07-24] VITALS (39 sets, daily range): BP systolic 88–130; BP diastolic 51–72; PULSE 52–67; RESP 12–18; TEMP 96.5–98.7; O2SAT 98
[2024-07-24 04:39] LABS: BASOPHILS # (AUTO) 0.04 K/uL (0.00-0.20); BASOPHILS % (AUTO) 0.4 % (0.0-5.0); EOSINOPHILS # (AUTO) 0.04 K/uL (0.00-0.70); EOSINOPHILS % (AUTO) 0.4 % (0.0-8.0); HEMATOCRIT 33.8 % (42-54); IMMATURE GRANULOCYTE ABSOLUTE 0.15 K/uL (0-1); LYMPHOCYTES # (AUTO) 1.5 K/uL (1.0-4.8); LYMPHOCYTES % (AUTO) 15.1 % (21.0-51.0); MEAN CORPUSCULAR HEMOGLOBIN 33.3 pg (27.0-33.0); MONOCYTES # (AUTO) 0.4 K/uL (0.1-1.0); MONOCYTES % (AUTO) 4.1 % (3.0-13.0); NEUTROPHILS # (AUTO) 7.7 K/uL (1.8-7.7); NEUTROPHILS % (AUTO) 78.5 % (40.0-77.0); PLATELET COUNT (AUTO) 252 K/uL (130-400); RED BLOOD CELL COUNT(AUTO) 3.45 MIL/uL (4.50-6.20); RED CELL DISTRIBUTION WIDTH 14.9 % (11.0-15.5); WHITE BLOOD COUNT (AUTO) 9.9 K/uL (4.8-10.8)
[2024-07-24 04:56] LABS: ALBUMIN 3.4 g/dL (3.5-5.0); BILIRUBIN,TOTAL 0.4 mg/dL (0.2-1.0); CREATININE 6.4 mg/dL (0.5-1.3); MAGNESIUM 2.4 mg/dL (1.80-2.40); PHOSPHORUS 6.4 mg/dL (2.5-4.9); POTASSIUM 3.6 mmol/L (3.5-5.1); TOTAL PROTEIN, SERUM 7.8 g/dL (6.0-8.3)
--- NOTE | 2024-07-24 06:40 | NUR ---
PATIENT TAKEN TO OR BY OR NURSE. BEDSIDE REPORT GIVEN. VERBALIZED UNDERSTANDING. ALL PATIENT'S BELONGINGS LEFT AT BEDSIDE. RIGHT FOREARM 20G IV INTACT. PATIENT [id number]
[2024-07-24] MEDS ORDERED: phenylEPHRINE HCL 10 MG/ML 1ML VIAL IV ONE (07:10)
[2024-07-24] MEDS ORDERED: proPOFol 10 MG/ML 20ML VIAL IV ONE (07:10)
[2024-07-24] MEDS ORDERED: FENTanyl CITRate PF 50 MCG/1 ML 2ML VIAL ONE (07:11)
[2024-07-24] MEDS ORDERED: MIDAZOLAM HCL 1 MG/ML 2ML VIAL ONE (07:11)
[2024-07-24] MEDS ORDERED: NEOSTIGMINE METHYLSULFATE 1MG/ML IV ONE (07:11)
[2024-07-24] MEDS ORDERED: rocuRONium bROMide 10MG/1ML 5ML VL ONE (07:11)
[2024-07-24] MEDS ORDERED: LIDOCAINE PF 100MG/5ML (2%) SYRINGE 5ML ONE (07:11)
[2024-07-24] MEDS ORDERED: GLYCOPYRROLATE 0.2 MG/ML 5 ML VIAL ONE (07:11)
[2024-07-24] MEDS: 0.9% NACL 500ML IV.SOLN 500 ML IV ONE (07:13)
[2024-07-24] MEDS ORDERED: ALBUMIN (HUMAN) 5% 250 ML IV ONE (07:32)
[2024-07-24] MEDS ORDERED: ketaMINE 50MG/ML SYRINGE 50 MG/ML DISP.SYRIN ONE (07:39)
[2024-07-24] MEDS ORDERED: BUPIvacaine/PF 0.25% 30ML VIAL IJ ONE (08:04)
[2024-07-24] MEDS ORDERED: BUPIvacaine/PF 0.25% 10ML VIAL IJ ONE (08:04)
[2024-07-24] MEDS: ceFAZolin SODIUM 2 GM VIAL IVPB ONE (08:26)
[2024-07-24] MEDS ORDERED: ceFAZolin SODIUM 1 GM VIAL ONE (08:27)
[2024-07-24] MEDS ORDERED: ondanSETRON 4MG INJ ONE (08:30)
--- NOTE | 2024-07-24 09:05 | OP ---
Operative Note: DATE OF PROCEDURE: 07/24/24 SURGEON: MARY ESTRELLA MD FACETOR: [] ANESTHESIA: [] General ANESTHESIOLOGIST/RESTAURANT LINE SERVER: [] PREOPERATIVE DIAGNOSIS: [] Acute cholecystitis POSTOPERATIVE DIAGNOSIS: [] The same SYNOPSIS: [] PROCEDURE: [] Robotic cholecystectomy ESTIMATED BLOOD LOSS: [] Minimal INDICATIONS: [] DESCRIPTION OF PROCEDURE: [] With the patient prepped and draped we did a supraumbilical incision. Using direct technique I placed a balloon trocar. Two da Britton trochars were placed in each side of the abdomen under direct vision. A 5 mm trocar was placed in the right lateral side. I then went to the console and the robot was docked. I took all adhesions from the gallbladder and I started dissecting the triangle of Calot. we used firefly to identify the cystic duct and CBD.The cystic duct and the cystic artery were clearly identified and both were double clipped and divided. I took the gallbladder from below using cautery dissection. After the gallbladder was completely removed and adequate hemostasis was obtained I remove all the instruments from the abdomen. I undocked the robot and I came back to the bedside of the patient. I confirm hemostasis suction and irrigate and I placed the gallbladder in a bag. I injected 40 cc of Marcaine 0.25% as an abdominal tap block under direct vision. I injected 20 cc in each side of the abdomen. I took out all the trochars under direct vision and the gallbladder through the supraumbilical incision. I closed the fascia of the supraumbilical incision with a 0 Vicryl [id number]. All incisions were closed with 4-0 Monocryl and Steri- Strips. The patient was transferred stable to the recovery room. MARY ESTRELLA MD Jul 24, 2024 09:05
[2024-07-24] MEDS: FENTanyl CITRate PF 50 MCG/1 ML 2ML VIAL ONE (09:51)
[2024-07-24] MEDS ORDERED: LEVO-70 PO (11:53)
--- NOTE | 2024-07-24 11:58 | DS ---
Discharge Summary Hospital Course Summary: DATE OF ADMISSION:[07/20/2024] DATE OF DISCHARGE:[07/24/2024] DISPOSITION:[Home] CONDITION:[Medically cleared] CONSULTANTS:[GI, rn critical care, surgeon] FOLLOW UP APPOINTMENTS:[PCP 2 to 3 days. GI within one week. Environmental Field Team Member as scheduled for dialysis. Surgeon within 1 to 2 weeks] PROCEDURES:[07/20/2024 MRCP. 07/22/2024 ERCP. 07/24/2024 robotic cholecystectomy] IMAGING: report attached to summary MICROBIOLOGY: report attached to summary ACTIVITY:[Independent] HOME MEDICATIONS: see med recc NEW MEDICATIONS:[See medication reconciliation] EMERGENCY INSTRUCTIONS: The patient was instructed to present to the nearest Emergency departmentr or call 911 once their symptoms will return or worsen Resource Recovery Engineer(s): This is a 59-year-old male with past medical history of diabetes, hypothyroidism, osteoarthritis, left retro-orbital mass with removal and end- stage renal disease on hemodialysis who presents to the ED for complaints of abdominal pain located around mid abdomen described pain as discomfort.Patient states he had rice and chicken around 5:00pm and at 5:30 pm he started having abdominal pain associated with nausea but no vomiting.Patient states his last bowel movement was last night and it was normal. Seen and examined patient in the ED awake,alert and coherent,appears comfortable. Patient denies fever, chills, vomiting, diarrhea, chest pain, cough, palpitation and shortness of breath. Latest vital signs temperature 98.6, heart rate 86, blood pressure 110/65, saturation 98% on room air. Labs: WBC 10.8, hemoglobin 13.2, hematocrit 39.3, platelet count 251. Potassium 3.4, chloride 97, CO2 39, BUN 25, creatinine 4.5, GFR 14 glucose 138, total bili 1.1, direct bili 0.7, AST 576, ALT 553, alkaline phosphatase 401 total protein 8.[address] abdomen and pelvis without contrast result revealed gallstone in the distended gallbladder. Left ureteral stent with air collection in the left renal pelvis. There is left renal atrophy. There is diverticulosis. We will admit patient for further medical management. Throughout the hospitalization patient underwent MRCP which showed small stone impacted at ampulla cholelithiasis no cholecystitis. Patient also underwent EUS which shows stones. On 07/22/24 patient underwent ERCP. Today 07/24/2024 patient underwent robotic cholecystectomy with . Patient was placed on full liquid and then GI soft diet patient was able to tolerate the diet. Patient was cleared by surgeon to be discharged home and follow-up within 1 to 2 weeks. Patient is also ESRD dialysis patient. Patient to receive dialysis today 07/24/2024 and discharged after dialysis. Follow up with rn critical care as scheduled for dialysis. GI cleared the patient follow-up in one week. Patient denies any shortness of breath, chest pain, nausea, vomiting or any other discomfort. Procedure(s): REVIEW OF SYSTEMS CONSTITUTIONAL: Denies fevers, chills, or night sweats. No unintentional weight loss reported. NEUROLOGICAL: Denies headache, amaurosis fugax, motor weakness, sensory deficit, vertigo/spinning sensation, gait abnormalities, or tremors. ENT: No hearing loss, otalgia, otorrhea, rhinitis, rhinorrhea, hoarseness, or sore throat. CARDIOVASCULAR: Denies any exertional angina, dyspnea on exertion, orthopnea, paroxysmal nocturnal dyspnea, palpitations, life-threatening arrhythmias, villa dication. PULMONARY: Denies any shortness of breath, cough, phlegm/sputum, hemoptysis, pleuritic chest pain. SLEEP: Denies morning headaches, daytime somnolence or napping. Denies difficulty falling asleep, staying asleep, waking from sleep. Denies knowledge of snoring. GASTROINTESTINAL: Denies any abdominal pain, nausea, vomiting. Denies any type of dysphagia to either liquids or solids. Denies vomiting, pyrosis, early sati ety, diarrhea, constipation, or changes in stool consistency or caliber. Denies coffee-ground emesis, hematemesis, hematochezia, or melanotic stools. GENITOURINARY: Denies frequency, urgency, nocturia, hematuria or incontinence (Storage/Irritative symptoms.) Low urinary stream, straining to void, urinary intermittency or hesitancy, splitting of the voiding stream, terminal dribbling. ENDOCRINOLOGIC: Denies polyuria, polydipsia, polyphagia or heat/cold intolerances. HEMATOLOGIC: Denies thrombophilia/previous clots, or coagulopathy/bleeding disorders. ONCOLOGIC: Denies personal history of malignancy. DERMATOLOGIC: Denies rashes or pruritus. PSYCHIATRIC: Denies any suicidal or homicidal ideation. Denies hallucinations. PHYSICAL EXAM GENERAL APPEARANCE: The patient is awake, alert, and oriented, in no acute cardiopulmonary distress. NEUROLOGICAL: Cranial nerves II-XII grossly intact. Motor is 5/5 in bilateral upper and lower extremities proximal to distal. No sensory deficits. HEENT: Face is symmetric. Pupils are equal and reactive. Extraocular movements are intact. NECK: Supple. No JVD. No thyromegaly. No submental, submandibular, pre- /postauricular, occipital or supraclavicular lymphadenopathy. CHEST: Normal chest expansion. No Telemetry. LUNGS: Absence of any rales, rhonchi or any wheezing. CARDIOVASCULAR: Regular. S1 and S2 normal. No appreciable rubs, murmurs or gallops. ABDOMEN: Soft, nontender, and nondistended. There is no rebound, voluntary guarding, or rigidity. : Deferred. No Shea. EXTREMITIES: Non-edematous and not cyanotic. No clubbing. Good capillary refill. SKIN: No skin breakdown. Assessment/Plan: ASSESSMENT: Suspected acute cholecystitis with cholelithiasis POA 6 mm stone per ultrasound abdomen 07/19/[address] abdomen/pelvis 07/19/2024 Hypotension POA Elevated liver enzymes POA Iron-deficiency anemia POA End-stage renal disease on hemodialysis POA Uncontrolled diabetes mellitus type 2 with hypoglycemia POA Morbid Obesity POA Hypothyroidism POA Left ureter stent per CT abdomen/pelvis 07/19/2024 Electrolyte imbalance hypokalemia 3.0 , hypochloridemia 98 POA Home Medications: Active Scripts Famotidine (Famotidine) 20 Mg Tablet, 20 MG PO DAILY for 30 Days, #30 TAB Prov:ESTELITA AMAYA RADIO DIVISION CAPTAIN 09/27/23 Docusate Sodium (Colace) 100 Mg Capsule, 100 MG PO DAILY for 30 Days, #30 CAP Prov:ESTELITA AMAYA RADIO DIVISION CAPTAIN 09/27/23 Hydrocortisone (Hydrocortisone) 20 Mg Tablet, 20 MG PO BID for 30 Days, #60 TAB Prov:ESTELITA AMAYA RADIO DIVISION CAPTAIN 09/27/23 Reported Medications Folic Acid/Vit Bcomp,C (Renal-Parmjit Tablet) 0.8 Mg Tablet, 1 TAB PO DAILY for 30 Days, #30 TAB 0 Refills 07/20/24 Ezetimibe (Ezetimibe) 10 Mg Tablet, 10 MG PO AM, TAB 07/20/24 Calcium Acetate (Calcium Acetate) 667 Mg Capsule, 667 MG PO TID, CAP 07/20/24 Colchicine (Colchicine) 0.6 Mg Tablet, 0.6 MG PO DAILY for GOUT, TAB 10/24/23 Famotidine (Famotidine) 20 Mg Tablet, 20 MG PO DAILY, TAB 10/24/23 Folic Acid/Vitamin B Comp W-C (Pam-Parmjit Tablet) 0.8 Mg Tablet, 0.8 MG PO DAILY, TAB 10/24/23 Levothyroxine Sodium (Levothyroxine) 125 Mcg Capsule, 125 MCG PO DAILY, CAP 09/15/23 Discontinued Reported Medications Hydrocortisone (Hydrocortisone) 10 Mg Tablet, 10 MG PO BID, TAB 07/20/24 Discontinued Scripts [Folic Acid/Vitamin B Comp W-C] 1 CAP TAB No Conflict Check, 1 CAP PO DAILY for 30 Days, #30 TAB 0 Refills Prov:ESTELITA AMAYA NP 09/27/23 Ferrous Sulfate (Ferrous Sulfate) 324 Mg (65 Mg Iron) Tablet.dr, 325 MG PO BID for 30 Days, #30 TAB Prov:ESTELITA AMAYA RADIO DIVISION CAPTAIN 09/27/23 Sodium Bicarbonate (Sodium Bicarbonate) 650 Mg Tablet, 650 MG PO BID for 30 Days, #60 TAB Prov:ESTELITA AMAYA RADIO DIVISION CAPTAIN 09/27/23 Time spent arranging discharge: 31-60 minutes ATTESTATION BY PHYSICIAN I have seen and examined the patient. I reviewed the documentation, medical decision making, and treatment plan as noted by the mid-level provider above. I agree with the findings and plan of care. MIGDALIA QUINTERO MD, [facility] Jul 24, 2024 11:58
--- NOTE | 2024-07-24 15:07 | PN ---
GASTROENTEROLOGY PROGRESS NOTE Date of Visit: Jul 24, 2024 Time of Visit: 15:07 Events / Notes: [ ] Review of Systems: CONSTITUTIONAL: No malaise or change in sensation of wellbeing. ENMT: No rhinorrhea, otorrhea, sinus pain, ear ache. CARDIOVASCULAR: No angina, palpitations, orthopnea or paroxysmal dyspnea. RESPIRATORY: No SOB. GASTROINTESTINAL: No abdominal pain, nausea, vomiting, diarrhea, hematemesis, melena or change in the patient's habitual bowel movements consistency/number. GENITOURINARY: No dysuria, hematuria or change in bladder continence. MUSCULOSKELETAL: No new muscle pain or decrease in muscular strength. No new joint swelling, redness or tenderness. SKIN: No new rash. Physical Exam: GEN: Awake, alert, oriented in person, time and place, and in no acute distress. HEENT: No sinus tenderness. Tympanic membranes were not examined. No rhinorrhea. Oral pharyngeal mucosa is pink, moist and within normal limits. Neck is supple with no cervical lymphadenopathy, thyromegaly or JVD. CHEST: Inspection, palpation and percussion of the chest were unremarkable. Lung auscultation revealed normal breath sounds bilaterally. CARDIAC: PMI is within normal limits. Heart sounds are regular. Normal S1, S2. No gallop or murmur. ABD: Soft, non-tender and not distended. No peritoneal signs on palpation. No organomegaly. Normal bowel sounds. EXT: No cyanosis or clubbing. No edema. SKIN: Intact. No rashes. JOINTS: No evidence of synovitis or acute arthritis. NEURO: Alert and oriented to name, place and person. Cranial nerve examination is unremarkable. No focal motor deficits. Normal speech. Gait is normal. Strength is normal. Vital Signs (last 8hr) Date Time Temp Pulse Resp B/P (MAP) Pulse Ox O2 Delivery O2 Flow Rate FiO2 07/24/24 10:20 97.5 62 15 117/62 95 Nasal Cannula 2.0 07/24/24 10:15 62 14 113/65 96 Nasal Cannula 2.0 07/24/24 10:10 63 13 111/60 95 Nasal Cannula 2.0 07/24/24 10:05 62 14 118/66 95 Nasal Cannula 2.0 07/24/24 10:00 64 14 115/66 95 Nasal Cannula 2.0 07/24/24 09:55 61 12 109/64 96 Nasal Cannula 2.0 07/24/24 09:50 60 12 114/66 100 Nonrebreathing Mask 100 07/24/24 09:45 59 13 120/67 100 Nonrebreathing Mask 100 07/24/24 09:40 61 15 122/69 100 Nonrebreathing Mask 100 07/24/24 09:35 58 15 121/69 100 Nonrebreathing Mask 100 07/24/24 09:30 97.3 60 16 112/67 100 Nonrebreathing Mask 100 Laboratory: [ ] Laboratory: Test 07/24/24 11:49 07/24/24 04:12 Range/Units Whole Blood Glucose 97 70-110 MG/DL White Blood Count 9.9 4.8-10.8 K/uL Red Blood Count 3.45 L 4.50-6.20 MIL/uL Hemoglobin 11.5 L 14.0-18.0 g/dL Hematocrit 33.8 L 42-54 % Mean Corpuscular Volume 98.0 79-99 fL Mean Corpuscular Hemoglobin 33.3 H 27.0-33.0 pg Mean Corpuscular Hemoglobin Concent 34.0 32.0-36.0 g/dL Red Cell Distribution Width 14.9 11.0-15.5 % Platelet Count 252 130-400 K/uL Mean Platelet Volume 10.7 H 7.5-10.5 fL Immature Granulocyte % (Auto) 1.5 H 0-1 % Neutrophils (%) (Auto) 78.5 H 40.0-77.0 % Lymphocytes (%) (Auto) 15.1 L 21.0-51.0 % Monocytes (%) (Auto) 4.1 3.0-13.0 % Eosinophils (%) (Auto) 0.4 0.0-8.0 % Basophils (%) (Auto) 0.4 0.0-5.0 % Neutrophils # (Auto) 7.7 1.8-7.7 K/uL Lymphocytes # (Auto) 1.5 1.0-4.8 K/uL Monocytes # (Auto) 0.4 0.1-1.0 K/uL Eosinophils # (Auto) 0.04 0.00-0.70 K/uL Basophils # (Auto) 0.04 0.00-0.20 K/uL Absolute Immature Granulocyte (auto 0.15 0-1 K/uL Nucleated Red Blood Cells 0.0 0.0-0.19 % Sodium Level 137 136-145 mmol/L Potassium Level 3.6 3.5-5.1 mmol/L Chloride Level 96 L 101-111 mmol/L Carbon Dioxide Level 28 21-32 mmol/L Blood Urea Nitrogen 57 H 7-18 mg/dL Creatinine 6.4 H 0.5-1.3 mg/dL Glomerular Filtration Rate Calc 9 >90 mL/min Random Glucose 109 H 70-105 mg/dL Total Calcium 9.2 8.5-10.1 mg/dL Phosphorus Level 6.4 H 2.5-4.9 mg/dL Magnesium Level 2.40 1.80-2.40 mg/dL Total Bilirubin 0.4 0.2-1.0 mg/dL Aspartate Amino Transf (AST/SGOT) 78 H 10-37 U/L Alanine Aminotransferase (ALT/SGPT) 274 H 12-78 U/L Alkaline Phosphatase 409 H 50-136 U/L Total Protein 7.8 6.0-8.3 g/dL Albumin 3.4 L 3.5-5.0 g/dL Current Medications Medications (Trade) Dose Ordered Sig/Jarad Route PRN Reason Start Time Stop Time Status Last Admin Dose Admin Albumin Human 100 ml @ 0 mls/hr AD IV 07/20/24 05:00 07/21/24 14:12 DC Albumin Human (Albumin (Human) 25%) 100 ml ONCE IV 07/24/24 15:00 07/25/24 14:59 UNV Calcium Acetate (Phoslo 667mg Cap) 667 mg TID PO 07/20/24 14:00 08/19/24 13:59 07/24/24 14:22 667 MG Ceftriaxone Sodium (Rocephin 2gm Inj) 2 gm Q24H IVPB 07/21/24 08:30 07/31/24 08:29 07/23/24 09:37 2 GM Colchicine (COLCHicine 0.6mg TAB) 0.6 mg DAILY PO 07/21/24 09:00 08/20/24 08:59 07/23/24 15:20 0.6 MG Docusate Sodium (COLace 100MG CAP) 100 mg DAILY PO 07/21/24 09:00 08/20/24 08:59 07/23/24 15:20 100 MG EZETIMIBE (Zetia) 10 mg AM PO 07/21/24 09:00 08/20/24 08:59 07/23/24 15:20 10 MG Famotidine (Pepcid 20mg Vial) 10 mg DAILY IV 07/20/24 09:00 08/19/24 08:59 07/23/24 09:37 10 MG Famotidine (Pepcid 20mg Tab) 20 mg DAILY PO 07/21/24 09:00 07/21/24 14:12 DC Famotidine (Pepcid 20mg Tab) 20 mg DAILY PO 07/21/24 09:00 07/21/24 14:12 DC Hydralazine HCl (APRESOLine 20MG INJ) 10 mg Q6H PRN IV For:SBP above 160;DBP above 90 07/20/24 02:30 08/19/24 02:29 Hydrocortisone (corTEF 20MG TAB) 20 mg BID PO 07/20/24 21:00 08/19/24 20:59 07/23/24 20:28 20 MG Hydromorphone HCl (DiLAUDid 0.5MG INJ) 0.5 mg Q6H PRN IVP SEVERE PAIN (7-10) 07/20/24 14:30 07/25/24 14:29 Levothyroxine Sodium (SYNTHroid 125MCG TAB) 125 mcg SYN PO 07/21/24 06:30 08/20/24 06:29 Lidocaine HCl (Lidocaine HCl Mpf 1% 2ml Vial) 0.5 ml AD IJ 07/21/24 14:20 07/21/24 14:35 DC Midodrine (PROAMatine 5 MG TABLET) 10 mg ONCE PO 07/22/24 19:30 07/22/24 23:59 DC 07/23/24 05:03 10 MG Miscellaneous Medication (Folic Acid/ Vitamin B Comp W-C (Pam-Parmjit Tablet)) 0.8 mg DAILY PO 07/21/24 09:00 08/20/24 08:59 UNV Ondansetron HCl (zoFRAN 4MG INJ) 4 mg Q6H PRN IV NAUSEA/VOMITING 07/20/24 02:30 08/19/24 02:29 Sodium Chloride 1,000 ml @ 0 mls/hr ONCE IV 07/21/24 14:30 08/20/24 14:29 07/24/24 14:50 100 MLS/HR Vitamin B Complex/ Vit C/Folic Acid (Nephrovite Tablet) 1 cap DAILY PO 07/21/24 09:00 08/20/24 08:59 07/23/24 15:20 1 CAP Diagnostics / Radiology: [COPY/PASTE HERE IF NO REPORTS PLEASE DELETE SECTION] Assessment: [ ] Plan: [ ] SIL MENDEZ FIELD RADIO TECHNICIAN Jul 24, 2024 15:07
[2024-07-24] MEDS: ALBUMIN (HUMAN) 25% 50 ML IV.SOLN. IV SCH (15:19)
--- NOTE | 2024-07-24 22:34 | PN ---
NEPHROLOGY NOTE SUBJECTIVE: The patient has been evaluated and seen for dialysis, seen several times. The patient has no fever, chills or rigors. No cough, expectoration, or hemoptysis. No abdominal pain. No nausea or vomiting. No chest pain. No orthopnea or PND. Other systemic review is unchanged. PHYSICAL EXAMINATION: GENERAL: The patient is pale. No other distress or deformities, lying in bed. VITAL SIGNS: Blood pressure has been stable, pulse 74, respiratory rate is 18, afebrile. HEENT: Head is atraumatic. Pupils are round and reactive. Sclerae anicteric. Conjunctivae not pale. Oral mucosa is not dry. NECK: Without masses or bruits. Thyroid is palpable. Neck has no bruits. CHEST: Shows equal to thoracic percussion note being resonant in all areas. CARDIAC: Regular rhythm. No rub. No S3 or S4. No parasternal heave. Apical beat is not localized. ABDOMEN: With no guarding or tenderness. Bowel sounds are normoactive. No free fluid. EXTREMITIES: With no edema. No cyanosis or clubbing. LABORATORY DATA: Labs have been reviewed in detail. The patient has elevated BUN and creatinine. Old records reviewed. Imaging studies are personally reviewed. PROBLEMS: Renal failure, anemia, status post cholecystectomy. PLAN: Dialysis to continue. Followup on renal function and electrolytes. Continued monitoring of overall status. Seen for dialysis and seen multiple times. TID: [id number] RECEIPT: [id number]
--- NOTE | 2024-07-24 22:41 | PN ---
SUBJECTIVE: The patient has been evaluated and seen several times for dialysis. The patient has no fever, chills. No cough or expectoration. No abdominal pain. No nausea or vomiting. No chest pain. No orthopnea or PND. All the other systemic review is unchanged and unremarkable. Other systemic review is unchanged. The patient has been evaluated and seen for dialysis and seen several times. No other associated finding. No other aggravating or relieving factors. The patient is weak. PHYSICAL EXAMINATION: GENERAL: Pale, no other distress. VITAL SIGNS: Blood pressure is 118/70, respiratory rate is 18, afebrile. HEENT: Head is atraumatic, normocephalic. Pupils are round and reactive. Sclerae anicteric. Conjunctivae not pale. Oral mucosa is not dry. NECK: Supple with no masses or bruits. Thyroid is palpable. Neck has no bruits. CHEST: Shows equal to thoracic percussion note being resonant in all areas. CARDIAC: Regular rhythm. No rub. No S3 or S4. No parasternal heave. Apical beat is not localized. ABDOMEN: No guarding or tenderness. Bowel sounds are normoactive. No free fluid. EXTREMITIES: With no edema. LABORATORY DATA: Labs have been reviewed. The patient has renal failure, anemia, multiple other comorbidities and hyperkalemia. PLAN: To continue dialysis support. The patient has no other associated finding. Plan is to continue dialysis. Continue monitoring of renal function. Continue monitoring of electrolytes and continue followup. The patient was evaluated for dialysis multiple times. TID: [id number] RECEIPT: [id number]
== END 2024-07-24 19:15 | disposition home or self-care (01) | DRG 417 ==
LOC: EDH 20:07 → EDHIP 07-20 01:11 → 3CH 07-21 00:33
PROVIDERS: ADMIT Internal Medicine; ATTEND Internal Medicine
PROC: 5A1D70Z Performance of Urinary Filtration, Intermittent, Less than 6 Hours Per Day (ICD-10-PCS; principal; 2024-07-21)
PROC: 0FT44ZZ Resection of Gallbladder, Percutaneous Endoscopic Approach (ICD-10-PCS; 2024-07-24)
PROC: 5A1D70Z Performance of Urinary Filtration, Intermittent, Less than 6 Hours Per Day (ICD-10-PCS; 2024-07-24)
PROC: 8E0W4CZ Robotic Assisted Procedure of Trunk Region, Percutaneous Endoscopic Approach (ICD-10-PCS; 2024-07-24)
DX: K80.00 Calculus of gallbladder with acute cholecystitis without obstruction (principal); N18.6 End stage renal disease; E66.01 Morbid (severe) obesity due to excess calories; K57.30 Diverticulosis of large intestine without perforation or abscess without bleeding; I95.9 Hypotension, unspecified; D50.9 Iron deficiency anemia, unspecified; E11.22 Type 2 diabetes mellitus with diabetic chronic kidney disease; E11.649 Type 2 diabetes mellitus with hypoglycemia without coma; E03.9 Hypothyroidism, unspecified; E87.6 Hypokalemia; N26.1 Atrophy of kidney (terminal); K76.0 Fatty (change of) liver, not elsewhere classified; D63.1 Anemia in chronic kidney disease; E11.65 Type 2 diabetes mellitus with hyperglycemia; Z68.29 Body mass index [BMI] 29.0-29.9, adult; Z99.2 Dependence on renal dialysis; Z79.899 Other long term (current) drug therapy
CPT/HCPCS: 36415; 43237; 43262; 43264; 74176; 74181; 74328; 74330; 76700; 80048; 80053; 80074; 80076; 81001; 82948; 83690; 83735; 84100; 85025; 85651; 87086; 87186; 90935; 99291; A4450; A4606; C1769; C1773; G0378; J0690; J0696; J1100; J2003; J2250; J2371; J2405; J2704; J2710; J3010; J3490; J7030; J7040; P9045; P9046; P9047; Q9967; A4215; A4221; A4222; A4223; A4600; A4620; A4649; A4657; J0665; S8037

== ENCOUNTER 2025-06-24 10:05 | Emergency (ER) | payer BC, MEDICAID ==
[~2025-06-24] VITALS: Ht 175.3 cm; Wt 94.8 kg
[~2025-06-24 10:05] MED LIST changes: +CALC667C10 PO; -COLC0.6T73 PO; +COLC0.6T79 PO; +EZET10TA80 PO; -FERR324T4 PO; +FOLI0.8T43 PO; -Folic Acid/Vitamin B Comp W-C PO; +LEVO-70 PO; -LEVO125C4 PO; +LEVO125C5 PO; -SODI650T PO
--- NOTE | 2025-06-24 10:15 | ERN ---
ED Note History of Present Illness Stated Complaint: NAUSEA, VOMITING, DIZZY Chief Complaint: Nausea,Vomiting,Diarrhea Time Seen by MD: 10:08 Dictation: Patient is a 60-year-old male coming in via EMS with complaints of having heavy eyelids and dizziness weakness after he had a stent removed from his right kidney at [facility] last Wednesday. NIH is 0 on approach, no chest pain no back pain no headache. Has go to hemodialysis with a left arm fistula. Last hemodialysis was Wednesday, or Wednesday. Allergies: Coded Allergies: No Known Drug Allergies (Unverified Allergy, Unknown, 09/13/23) Home Meds Active Scripts Levofloxacin (Levofloxacin) 500 Mg Tablet, 1 TAB PO DAILY for 7 Days, #7 TAB 0 Refills Prov:[facility]DR [facility] 07/24/24 Famotidine (Famotidine) 20 Mg Tablet, 20 MG PO DAILY for 30 Days, #30 TAB Prov:ESTELITA [facility] 09/27/23 Docusate Sodium (Colace) 100 Mg Capsule, 100 MG PO DAILY for 30 Days, #30 CAP Prov:ESTELITA [facility] 09/27/23 Hydrocortisone (Hydrocortisone) 20 Mg Tablet, 20 MG PO BID for 30 Days, #60 TAB Prov:ESTELITA [facility] 09/27/23 Reported Medications Folic Acid/Vit Bcomp,C (Renal-Parmjit Tablet) 0.8 Mg Tablet, 1 TAB PO DAILY for 30 Days, #30 TAB 0 Refills 07/20/24 Ezetimibe (Ezetimibe) 10 Mg Tablet, 10 MG PO AM, TAB 07/20/24 Calcium Acetate (Calcium Acetate) 667 Mg Capsule, 667 MG PO TID, CAP 07/20/24 Colchicine (Colchicine) 0.6 Mg Tablet, 0.6 MG PO DAILY for GOUT, TAB 10/24/23 Famotidine (Famotidine) 20 Mg Tablet, 20 MG PO DAILY, TAB 10/24/23 Folic Acid/Vitamin B Comp W-C (Pam-Parmjit Tablet) 0.8 Mg Tablet, 0.8 MG PO DAILY, TAB 10/24/23 Levothyroxine Sodium (Levothyroxine) 125 Mcg Capsule, 125 MCG PO DAILY, CAP 09/15/23 Past Medical History Past Medical History: Renal Failure Additional Past Medical Hx: BRAIN TUMOR Surgical History: Cholecystectomy, Other Surgical History Other: BRAIN TUMOR RN Note Reviewed/Agreed w/PFSH: Yes Review of System Dictation CONSTITUTIONAL: Negative except for HPI HEAD/FACE: Negative except for HPI EENT: Negative except for HPI RESPIRATORY: Negative except for HPI GASTROINTESTINAL/ABDOMINAL: Negative except for HPI nausea vomiting GENITOURINARY: Negative except for HPI MUSCULOSKELETAL: Negative except for HPI INTEGUMENTARY: Negative except for HPI NEUROLOGICAL/PSYCH: Negative except for HPI dizziness HEMATOLOGIC/LYMPHATIC: Negative except for HPI All Systems Negative, Except as noted above. 13 point review of systems assessed and all negative except for above. Initial Vital Sign VS Vital Signs Date Time Temp Pulse Resp B/P (MAP) Pulse Ox O2 Delivery O2 Flow Rate FiO2 06/24/25 10:07 99.1 82 16 108/63 96 Room Air 06/24/25 10:16 0 21 Physical Exam Dictation Vital Signs reviewed General Appearance: Alert, oriented x 3, no acute distress, well developed, nourished. Head and Face: non-traumatic. Eyes: PERRL, pink conjunctivas, eyelid no trauma, anterior chamber with arcus senilis. Ears: Pinnas intact and no signs of trauma or erythema ear canals clear and no discharge TM no erythema Nose: No discharge, no bleeding. Oropharynx: Mouth normal, tongue pink, pharynx clear,no erythema, tonsils no exudates, no abscesses noted, mucous membrane moist Neck: Supple, non-tender, no thyromegaly, no masses, no JVD, no bruits Breast:Deferred Chest:No tenderness, no crepitus, no paradoxical movement, no retractions Lungs:Clear, well-ventilated, symmetric, no rales, no wheezing, no rhonchi, no stridor, good breath sounds bilaterally Heart: Regular rate, regular rhythm, no murmur, no gallops Vascular: no peripheral edema, left arm fistula with good thrill and bruit Abdomen: Soft, positive bowel sounds, nondistended, no guarding, nontender, no rebound, no masses no hepatomegaly, no splenomegaly, no Eastman's sign, no hernias. Rectal: Deferred Genital: Deferred Neurological: Normal speech, motor function intact, sensory function intact NIH is 0 Musculoskeletal: Neck nontender, full range of motion, back nontender, full range of motion, Extremities: nontender, full range of motion Skin: Color pink, dry, no turgor, no rash, no lacerations, no abrasions, no contusions. Lymphatic: Deferred Results (Laboratory/Radiology) Laboratory/Radiology Laboratory Tests Test 06/24/25 10:25 White Blood Count 8.4 K/uL (4.8-10.8) Red Blood Count 3.25 MIL/uL (4.50-6.20) L Hemoglobin 10.4 g/dL (14.0-18.0) L Hematocrit 29.8 % (42-54) L Mean Corpuscular Volume 91.7 fL (79-99) Mean Corpuscular Hemoglobin 32.0 pg (27.0-33.0) Mean Corpuscular Hemoglobin Concent 34.9 g/dL (32.0-36.0) Red Cell Distribution Width 14.2 % (11.0-15.5) Platelet Count 210 K/uL (130-400) Mean Platelet Volume 10.9 fL (7.5-10.5) H Immature Granulocyte % (Auto) 1.2 % (0-1) H Neutrophils (%) (Auto) 53.8 % (40.0-77.0) Lymphocytes (%) (Auto) 30.0 % (21.0-51.0) Monocytes (%) (Auto) 10.5 % (3.0-13.0) Eosinophils (%) (Auto) 3.9 % (0.0-8.0) Basophils (%) (Auto) 0.6 % (0.0-5.0) Neutrophils # (Auto) 4.5 K/uL (1.8-7.7) Lymphocytes # (Auto) 2.5 K/uL (1.0-4.8) Monocytes # (Auto) 0.9 K/uL (0.1-1.0) Eosinophils # (Auto) 0.33 K/uL (0.00-0.70) Basophils # (Auto) 0.05 K/uL (0.00-0.20) Absolute Immature Granulocyte (auto 0.10 K/uL (0-1) Nucleated Red Blood Cells 0.0 % (0.0-0.19) Sodium Level 142 mmol/L (136-145) Potassium Level 2.8 mmol/L (3.5-5.1) *L Chloride Level 103 mmol/L (101-111) Carbon Dioxide Level 27 mmol/L (21-32) Blood Urea Nitrogen 28 mg/dL (7-18) H Creatinine 3.7 mg/dL (0.5-1.3) H Glomerular Filtration Rate Calc 18 mL/min (>90) Random Glucose 107 mg/dL (70-105) H Total Calcium 8.4 mg/dL (8.5-10.1) L Magnesium Level 2.10 mg/dL (1.80-2.40) Troponin I High Sensitivity 7 ng/L (4-75) B-Type Natriuretic Peptide 53 pg/mL (0-100) 1120/CHEST X-RAY NEGATIVE COMPARISON: None provided. FINDINGS: BRAIN: Generalized cerebral and cerebellar atrophy is seen with chronic small vessel ischemic changes. A few tiny chronic lacunar infarcts are seen along the bilateral basal ganglia region. No evidence of acute hemorrhage. No mass lesion. No CT evidence for acute territorial infarct. No midline shift or extra-axial collections. VENTRICLES: No hydrocephalus. ORBITS: The orbits are unremarkable. SINUSES AND MASTOIDS: Mucosal thickening is seen along the sphenoid sinus. The remaining paranasal sinuses and mastoid air cells are clear. BONES: No fracture. SOFT TISSUES: Multiple well-defined tiny soft tissue nodules with central calcific foci are seen along the subcutaneous plane of the left occipital region and left upper neck region. IMPRESSION: 1. No acute intracranial findings. 2. Chronic small vessel ischemic changes and cerebral atrophy. 3. Chronic lacunar infarcts in bilateral basal ganglia. 4. Sphenoid sinus mucosal thickening. 5. Subcutaneous calcified nodules in the left occipital and upper neck regions. /[facility] Reviewed?: Yes EKG Comment: 1015/EKG sinus rhythm with first-degree AV block/right axis deviation/heart rate 81/QT interval 503 millisecond ED Course ED Course Orders Procedure Category Date Status Time Ct Head/Brain W/O CT 06/24/25 Resulted Contrast 10:13 Cbc With Differential LAB 06/24/25 Complete 10:13 Chest 1vw RAD 06/24/25 Resulted 10:13 12 Lead Ekg Tracing- EKG 06/24/25 Resulted Technical 10:13 Magnesium LAB 06/24/25 Complete 10:13 Troponin I High LAB 06/24/25 Complete Sensitivity 10:13 Basic Metabolic Panel LAB 06/24/25 Complete 10:13 B-Type Natriuretic LAB 06/24/25 Complete Peptide 10:13 Potassium Bicarb/Cit PHA 06/24/25 Complete Ac 25meq (K-Lyte Ta 11:00 Current Medications Medications (Trade) Dose Ordered Sig/Jarad Route PRN Reason Start Time Stop Time Status Last Admin Dose Admin Potassium Bicarbonate (K-Lyte Tablet Eff 25 Meq Tablet.eff) 50 meq ONCE ONCE PO 06/24/25 11:00 06/24/25 11:05 DC 06/24/25 11:28 Vital Signs Date Time Temp Pulse Resp B/P (MAP) Pulse Ox O2 Delivery O2 Flow Rate FiO2 06/24/25 12:26 98.1 76 21 99/56 98 Room Air* 0 21 06/24/25 10:16 99.1 82 20 97/56 96 Room Air* 0 21 06/24/25 10:07 99.1 82 16 108/63 96 Room Air 1155/PATIENT IS HEMODYNAMICALLY STABLE NEUROLOGICALLY INTACT. HE IS AWARE THAT WORKUP WAS ESSENTIALLY NEGATIVE OTHER THAN HYPOKALEMIA WHICH THE POTASSIUM WAS REPLACED YOUR. HE STATES NOW THAT HE HAD JUST GOTTEN CONCERNED BECAUSE HE WENT TO BED LAST NIGHT AND WOKE UP THIS MORNING AT 08:00 AND NORMALLY HE GETS UP AT 07:30 IN THE MORNING SO HE SLEPT TOO LONG. I ADVISED HIM HE COULD HAVE SIMPLY BEEN TIRED AND TO FOLLOW UP WITH HIS PRIMARY CARE DOCTOR NEXT WEEK AND HAVE HIS POTASSIUM REDRAWN. HEART Score Response (Comments) Value EKG: Repolarization changes 1 Age: 45-65yrs (+1) 1 Risk Factors: 3+ risk factors (+2) 2 Initial Troponin: Normal limit (0) 0 Total 4 Medical Decision Making MDM MDM: DIFFERENTIAL DIAGNOSIS: ACS/AMI/ELECTROLYTE IMBALANCE/DEHYDRATION/PNEUMONIA/BRONCHITIS/CVA RATIONALE: TESTS CONSIDERED AND ORDERED SECONDARY TO SHARED DECISION MAKING INCLUDE: EKG/LABS/RADIOLOGY PREVIOUS OUTSIDE RECORDS REVIEWED: OLD ER VISITS. RISK OF COMPLICATION AND/OR MORBIDITY OR MORTALITY OF PATIENT MANAGEMENT: NONE MEDICATIONS-PER MEDICATION RECONCILIATION NEED FOR HOSPITALIZATION: PATIENT DOES NOT MEET CRITERIA FOR HOSPITALIZATION. NONE NEED FOR EMERGENCY MAJOR/MINOR SURGERY: NO THERE ARE NO SOCIAL CONCERNS WITH THIS PATIENT. PRESCRIPTION DRUG MANAGEMENT NONE PRESCRIPTIONS WILL INCLUDE SYMPTOMATIC CARE PATIENT'S PRIOR EXTERNAL MEDICAL RECORDS FROM OTHER ER VISITS WERE REVIEWED BY ME INDICATED. PRIOR TESTING AND RESULTS FROM PREVIOUS VISITS WERE REVIEWED. PRIOR TESTS WERE TAKEN INTO ACCOUNT WITH MEDICAL DECISION MAKING AND RESOURCE UTILIZATION, INDEPENDENT HISTORIAN/HISTORIANS WERE USED TO OBTAIN COMPLETE MEDICAL HISTORY. I INDEPENDENTLY INTERPRETED THE TEST THAT WERE PERFORMED, RESULTS WERE REVIEWED BY ME AND CONSIDERED FINDINGS ON RADIOLOGY IF ORDERED. MEDICAL MANAGEMENT AND EXAMINATION INTERPRETATION DISCUSSIONS WERE HAD BY ME WITH OTHER QUALIFIED HEALTHCARE PROFESSIONALS INDICATED FOR THE PATIENT'S CARE. DX & DISP Disposition: Discharge Departure Impression: Primary Impression: Hypokalemia Additional Impressions: Anemia of chronic kidney failure, ESRD on dialysis Condition: Stable Additional Instructions: FOLLOW-UP WITH PRIMARY CARE PROVIDER IN 1 TO 2 DAYS. TAKE MEDICATIONS DIRECTED HERE IN THE EMERGENCY ROOM. OKAY TO CONTINUE HOME MEDICATIONS UNLESS OTHERWISE DISCUSSED DURING YOUR VISIT IN THE EMERGENCY ROOM TODAY. RETURN TO YOUR NEAREST EMERGENCY ROOM IF SYMPTOMS WORSEN OR IF THERE IS NO IMPROVEMENT. CALL 911 IF YOU NEED IMMEDIATE ASSISTANCE. TAKE TYLENOL OR MOTRIN [id number] NEEDED AND IF NO CONTRAINDICATIONS ARE PRESENT. INCREASE ORAL HYDRATION. A WOUND CULTURE OR URINE CULTURE WAS ORDERED HERE IN THE EMERGENCY ROOM DEPARTMENT PLEASE FOLLOW-UP WITH PRIMARY CARE PROVIDER AND ADVISE THEM TO GET REPEAT PORTS FROM OUR FACILITY. IF YOU HAD ANY CAITLIN WRAP/SPLINTS THAT WERE APPLIED HERE, PLEASE DO NOT REMOVE THEM UNTIL YOU SEE YOUR PRIMARY CARE OR SPECIALTY. FOLLOW UP WITH YOUR PRIMARY CARE DOCTOR NEXT WEEK Referrals: YARA ABREU Jr., MD (PCP) Time of Disposition: 11:57 I have reviewed the case, and I agree with, Diagnosis and Plan VANESSA BROWN Jun 24, 2025 10:15 NICKIE TREJO DO Jun 24, 2025 13:48
--- NOTE | 2025-06-24 10:28 | EKG ---
[facility] Test Date: 2025-06-24 Test Time: 10:15:26 Pat Name: JENNA BOATENG Department: [facility] Room: Gender: M Health Care Administrator: [id number] : 1965 Requested By: VANESSA BROWN Order Number: [id number] Reading MD: Damien Tavarez Measurements Intervals [place] Rate: 81 P: -2 MN: 223 QRS: 197 QRSD: 110 T: 1 QT: 433 QTc: 503 Interpretive Statements Sinus rhythm Prolonged MN interval Right axis deviation Prolonged QT interval Compared to ECG 10/23/2023 21:58:33 First degree AV block now present Right-axis deviation now present Prolonged QT interval now present Sinus tachycardia no longer present Myocardial infarct finding no longer present Electronically Signed On 06-24-2025 12:50:59 CDT by Damien Tavarez Please click the below link to view image of tracing.
[2025-06-24 10:34] LABS: IMMATURE GRANULOCYTE ABSOLUTE 0.10 K/uL (0-1); NUCLEATED RED BLOOD CELLS 0.0 % (0.0-0.19); PLATELET COUNT (AUTO) 210 K/uL (130-400); RED BLOOD CELL COUNT(AUTO) 3.25 MIL/uL (4.50-6.20); RED CELL DISTRIBUTION WIDTH 14.2 % (11.0-15.5); WHITE BLOOD COUNT (AUTO) 8.4 K/uL (4.8-10.8)
[2025-06-24 10:48] LABS: CREATININE 3.7 mg/dL (0.5-1.3); GLOMERULAR FILTR. RATE CALC 18.0 mL/min (>90); GLUCOSE,RANDOM 107.0 mg/dL (70-105); SODIUM SERUM 142.0 mmol/L (136-145); UREA NITROGEN, BLOOD 28.0 mg/dL (7-18)
--- NOTE | 2025-06-24 11:35 | HMCIMG ---
EXAM: CT Head Without IV contrast. CLINICAL HISTORY: onset dizziness four days ago TECHNIQUE: Axial computed tomography images of the head/brain without intravenous contrast. COMPARISON: None provided. FINDINGS: BRAIN: Generalized cerebral and cerebellar atrophy is seen with chronic small vessel ischemic changes. A few tiny chronic lacunar infarcts are seen along the bilateral basal ganglia region. No evidence of acute hemorrhage. No mass lesion. No CT evidence for acute territorial infarct. No midline shift or extra-axial collections. VENTRICLES: No hydrocephalus. ORBITS: The orbits are unremarkable. SINUSES AND MASTOIDS: Mucosal thickening is seen along the sphenoid sinus. The remaining paranasal sinuses and mastoid air cells are clear. BONES: No fracture. SOFT TISSUES: Multiple well-defined tiny soft tissue nodules with central calcific foci are seen along the subcutaneous plane of the left occipital region and left upper neck region. IMPRESSION: 1. No acute intracranial findings. 2. Chronic small vessel ischemic changes and cerebral atrophy. 3. Chronic lacunar infarcts in bilateral basal ganglia. 4. Sphenoid sinus mucosal thickening. 5. Subcutaneous calcified nodules in the left occipital and upper neck regions. /[place]
--- NOTE | 2025-06-24 12:23 | HMCIMG ---
EXAM: CR Chest, 1 View. CLINICAL HISTORY: Shortness a breath/hemodialysis patient COMPARISON: None provided. FINDINGS: LUNGS: The lungs show no infiltrate or other acute finding. PLEURAL SPACES: No pleural effusion or pneumothorax. MEDIASTINUM: Cardiac size and mediastinal contours within normal limits. BONES: No aggressive appearing osseous lesion seen. IMPRESSION: No acute cardiopulmonary pathology is evident. /[place]
[2025-06-24 12:26] VITALS: BP 99/56; PULSE 76; RESP 21; TEMP 98; O2SAT 98
--- NOTE | 2025-06-24 12:29 | NUR ---
DC PATIENT WAS DC'D BY VANESSA BROWN NP I DC'D PATIENTS IV WITH CATH STILL INTACT AND APPLIED 2X2 GAUZE WITH COBAN, I EXPLAINED TO PATIENT TO FOLLOW UP WITH PCP, PROVIDED INFO BASED ON DIAGNOSIS, AND ANSWERED ANY FOLLOW UP QUESTIONS PATIENT AMBULATED OUT OF ED, NO COMPLICATIONS
== END 2025-06-24 12:25 | disposition home or self-care (01) ==
LOC: EDH 10:05
DX: E87.6 Hypokalemia (principal); D63.1 Anemia in chronic kidney disease; N18.6 End stage renal disease; R42 Dizziness and giddiness; R53.1 Weakness; Z79.899 Other long term (current) drug therapy; Z90.49 Acquired absence of other specified parts of digestive tract; Z99.2 Dependence on renal dialysis; Z86.73 Personal history of transient ischemic attack (TIA), and cerebral infarction without residual deficits; Z79.890 Hormone replacement therapy
CPT/HCPCS: 36415; 70450; 71045; 80048; 83735; 83880; 84484; 85025; 93005; 99285